=== PATIENT | male | born 1970 | race Caucasian/White ===

== ENCOUNTER 2016-11-19 08:16 | Emergency (ER) | payer MEDICARE, MEDICAID ==
[2016-11-19] MEDS ORDERED: IPRATROPIUM/ALBUTEROL 0.5-2.5 MG/3 ML AMPUL NEB ONE ×3 (09:26→09:27)
[2016-11-19] MEDS ORDERED: KETOROLAC TROMETHAMINE 60 MG/2 ML SDV IM ONE (09:26)
[2016-11-19] MEDS ORDERED: PREDNISONE 20 MG TABLET PO ONE (09:26)
--- NOTE | 2016-11-19 09:35 | ER Document Report ---
ED General - General Chief Complaint: Cough Stated Complaint: COUGH,BODY PAIN Mode of Arrival: Ambulatory Information source: Patient Notes: 46-year-old male smoker presents with complaints of a productive cough over the past few days. Patient denies any nausea vomiting admits to fevers and chills. Patient admits to body aches notes sputum is green thick TRAVEL OUTSIDE OF THE [place] IN LAST 30 DAYS: No - HPI Onset: Last week Onset/Duration: Persistent Quality of pain: Achy Severity: Mild Pain Level: 1 Associated symptoms: Body/muscle aches, Productive cough, Fever Exacerbated by: Denies Relieved by: Denies Similar symptoms previously: No Recently seen / treated by doctor: No - Related Data Allergies/Adverse Reactions: Penicillins Allergy (Verified 11/19/16 08:26) Past Medical History - Social History Smoking Status: Current Every Day Smoker Cigarette use (# per day): Yes - 1 ppk Chew tobacco use (# tins/day): Yes Smoking Education Provided: Yes - Patient counselled regarding cessation for 4 minutes Frequency of alcohol use: None Drug Abuse: None Family History: Reviewed & Not Pertinent Patient has suicidal ideation: No Patient has homicidal ideation: No - Past Medical History Cardiac Medical History: Reports: Hx Hypercholesterolemia, Hx Hypertension Endocrine Medical History: Reports: Hx Diabetes Mellitus Type 2, Hx Hypothyroidism Renal/ Medical History: Denies: Hx Peritoneal Dialysis Musculoskeltal Medical History: Reports Hx Musculoskeletal Deformity, Reports Hx Musculoskeletal Trauma Skin Medical History: Reports Hx MRSA Traumatic Medical History: Reports: Hx Fractures - Immunizations Immunizations up to date: Yes Hx Diphtheria, Pertussis, Tetanus Vaccination: Yes Review of Systems - Review of Systems Notes: REVIEW OF SYSTEMS: CONSTITUTIONAL : Admits fevers and chills EENT: Denies eye, ear, throat, or mouth pain or symptoms. Denies nasal or sinus congestion or discharge. Denies throat, tongue, or mouth swelling or difficulty swallowing. CARDIOVASCULAR: Denies chest pain. Denies palpitations or racing or irregular heart beat. Denies ankle edema. RESPIRATORY: admits to productive cough GASTROINTESTINAL: Denies abdominal pain or distention. Denies nausea, vomiting , or diarrhea. Denies blood in vomitus, stools, or per rectum. Denies black, tarry stools. Denies constipation. GENITOURINARY: Denies difficulty urinating, painful urination, burning, frequency, blood in urine, or discharge. MUSCULOSKELETAL: Denies back or neck pain or stiffness. Denies joint pain or swelling. SKIN: Denies rash, lesions or sores. HEMATOLOGIC : Denies easy bruising or bleeding. LYMPHATIC: Denies swollen, enlarged glands. NEUROLOGICAL: Denies confusion or altered mental status. Denies passing out or loss of consciousness. Denies dizziness or lightheadedness. Denies headache. Denies weakness or paralysis or loss of use of either side. Denies problems with gait or speech. Denies sensory loss, numbness, or tingling. Denies seizures. PSYCHIATRIC: Denies anxiety or stress. Denies depression, suicidal ideation, or homicidal ideation. ALL OTHER SYSTEMS REVIEWED AND NEGATIVE. Dictation was performed using [employer] voice recognition software PHYSICAL EXAMINATION: GENERAL: Well-appearing, well-nourished and in no acute distress. HEAD: Atraumatic, normocephalic. EYES: Pupils equal round and reactive to light, extraocular movements intact, sclera anicteric, conjunctiva are normal. ENT: Nares patent, oropharynx clear without exudates. Moist mucous membranes. NECK: Normal range of motion, supple without lymphadenopathy LUNGS: Coarse wheezing all throughout no respiratory distress HEART: Regular rate and rhythm without murmurs ABDOMEN: Soft, nontender, nondistended abdomen. No guarding, no rebound. No masses appreciated. Musculoskeletal: Normal range of motion, no pitting or edema. No cyanosis. NEUROLOGICAL: Cranial nerves grossly intact. Normal speech, normal gait. Normal sensory, motor exams PSYCH: Normal mood, normal affect. SKIN: Warm, Dry, normal turgor, no rashes or lesions noted. Physical Exam - Vital signs Vitals: Temp Pulse Resp BP Pulse Ox 98.2 F 74 18 157/88 H 96 11/19/16 08:28 11/19/16 08:28 11/19/16 08:28 11/19/16 08:28 11/19/16 08:28 Course - Re-evaluation Re-evalutation: 11/19/16 09:51 Patient will be given multiple breathing treatments, chest x-ray noted no significant abnormality however he does have diffuse wheezing. Otherwise patient is stable for discharge After performing a Medical Screening Examination, I estimate there is LOW risk for ACUTE CORONARY SYNDROME, RESPIRATORY FAILURE, SEPSIS OR MENINGITIS, thus I consider the discharge disposition reasonable. The patient and I have discussed the diagnosis and risks, and we agree with discharging home with close follow- up. We also discussed returning to the Emergency Department immediately if new or worsening symptoms occur. We have discussed the symptoms which are most concerning (e.g., changing or worsening pain, trouble swallowing or breathing, neck stiffness, fever) that necessitate immediate return. - Vital Signs Vital signs: Temp Pulse Resp BP Pulse Ox 98.2 F 74 18 157/88 H 96 11/19/16 08:28 11/19/16 08:28 11/19/16 08:28 11/19/16 08:28 11/19/16 08:28 - Diagnostic Test Radiology reviewed: Image reviewed, Reports reviewed Discharge - Discharge Clinical Impression: Encounter for smoking cessation counseling, Bronchospasm URI (upper respiratory infection) Qualifiers: URI type: unspecified viral URI Qualified Code(s): J06.9 - Acute upper respiratory infection, unspecified; B97.89 - Other viral agents as the cause of diseases classified elsewhere Condition: Stable Disposition: HOME, SELF-CARE Instructions: Upper Respiratory Infection, or Child ([facility]) Prescriptions: Doxycycline Hyclate 100 mg PO BID #14 capsule Prednisone [Deltasone 20 mg Tablet] 3 tab PO DAILY 5 Days Forms: Smoking Cessation Education Referrals: GIL CUNNINGHAM, STOPE MINER-C [Primary Care Provider] - Follow up as needed
[2016-11-19] MEDS ORDERED: ALBUTEROL SULFATE HFA (90 MCG/PUFF) 8 GM MDI (1 MDI/ER DISP) IH PRN (09:55)
[2016-11-19 10:39] VITALS: BP 151/88
== END 2016-11-19 10:32 | disposition home or self-care (01) ==
LOC: ER 08:16
DX: J06.9 Acute upper respiratory infection, unspecified (principal); B97.89 Other viral agents as the cause of diseases classified elsewhere; R05 Cough; M79.1 Myalgia; R50.9 Fever, unspecified; R06.2 Wheezing; I10 Essential (primary) hypertension; E11.9 Type 2 diabetes mellitus without complications; F17.210 Nicotine dependence, cigarettes, uncomplicated; Z71.6 Tobacco abuse counseling; Z86.14 Personal history of Methicillin resistant Staphylococcus aureus infection; Z88.0 Allergy status to penicillin
CPT/HCPCS: 94640 ×2; 99283; 96372; 71020; J1885; A9270 ×2; J3490; J7512; J7620

== ENCOUNTER 2017-02-18 17:20 | Emergency (ER) | payer MEDICARE, MEDICAID ==
[2017-02-18] MEDS ORDERED: HYDROMORPHONE HCL INJ/PF 2 MG/ML AMPULE IM ONE (19:01)
--- NOTE | 2017-02-18 19:03 | ER Document Report ---
HPI - HPI Patient complains to provider of: right hip pain Onset: Yesterday Onset/Duration: Gradual Quality of pain: Achy Pain Level: 5 Context: Patient states that he was getting out of bed, slipped and fell landing on his right hip 2 days ago. Patient states that he gradually developed hip pain yesterday that has progressively worsened. Patient does have chronic low back pain but states that his pain is not in his low back but more the right hip. Patient takes Percocet 10/325 and OxyContin 20 twice a day for his chronic back pain. Patient states that he last took his dose of medication early this morning. Patient denies any fever or IV drug use. Patient denies any urinary retention or incontinence. Patient states that he has been able to walk after the fall initially although does become more painful to do so at home. Patient states that occasionally he has had right hip pain in the past. Associated Symptoms: Other - Right hip pain Exacerbated by: Standing, Movement, Walking Relieved by: Denies Similar symptoms previously: Yes Recently seen / treated by doctor: No - ROS ROS below otherwise negative: Yes Systems Reviewed and Negative: Yes All other systems reviewed and negative - CONSTITUTIONAL Constitutional: DENIES: Fever, Chills - NEURO Neurology: DENIES: Weakness - GASTROINTESTINAL Gastrointestinal: DENIES: Nausea - MUSCULOSKELETAL Musculoskeletal: REPORTS: Extremity pain - Right hip - DERM Skin Color: Normal Skin Problems: None Past Medical History - General Information source: Patient - Social History Smoking Status: Current Every Day Smoker Frequency of alcohol use: None Drug Abuse: None Occupation: none Lives with: Family Family History: Reviewed & Not Pertinent Patient has suicidal ideation: No Patient has homicidal ideation: No - Past Medical History Cardiac Medical History: Reports: Hx Hypercholesterolemia, Hx Hypertension Endocrine Medical History: Reports: Hx Diabetes Mellitus Type 2, Hx Hypothyroidism Renal/ Medical History: Denies: Hx Peritoneal Dialysis Musculoskeltal Medical History: Reports Hx Musculoskeletal Deformity, Reports Hx Musculoskeletal Trauma, Reports Other - Chronic back pain Skin Medical History: Reports Hx MRSA Traumatic Medical History: Reports: Hx Fractures Surgical Hx: Negative - Immunizations Immunizations up to date: Yes Hx Diphtheria, Pertussis, Tetanus Vaccination: Yes Vertical Provider Document - CONSTITUTIONAL Agree With Documented VS: Yes Exam Limitations: No Limitations General Appearance: WD/WN, No Apparent Distress - INFECTION CONTROL TRAVEL OUTSIDE OF THE [place] IN LAST 30 DAYS: No - HEENT HEENT: Atraumatic, Normocephalic - NECK Neck: Normal Inspection, Supple - RESPIRATORY Respiratory: Breath Sounds Normal, No Respiratory Distress O2 Sat by Pulse Oximetry: 99 - CARDIOVASCULAR Cardiovascular: Regular Rate, Regular Rhythm Pulses: Normal: Posterior tibial - BACK Back: Normal Inspection. negative: CVA Tenderness-Right, CVA Tenderness-Left - MUSCULOSKELETAL/EXTREMETIES Musculoskeletal/Extremeties: MAEW, Tender Notes: Right hip tenderness to posterior, lateral and anterior aspect. Patient able to stand unassisted. No deformity. No ecchymosis. Tenderness increases with flexion or abduction - NEURO Level of Consciousness: Awake, Alert, Appropriate Motor/Sensory: No Motor Deficit, No Sensory Deficit - DERM Integumentary: Warm, Dry, Rash - Annular rash to right posterior hip area Course - Re-evaluation Re-evalutation: 02/18/17 19:55 When advising patient of x-ray report results. Patient then states that he feels that he needs an Salty wrap to his right wrist as he bent his right wrist back 7 months ago and has continued to have right wrist pain to that area since then. Patient without any obvious deformity or swelling to wrist. - Vital Signs Vital signs: Temp Pulse Resp BP Pulse Ox 98.2 F 71 16 168/93 H 99 02/18/17 17:41 02/18/17 17:41 02/18/17 17:41 02/18/17 17:41 02/18/17 17:41 - Diagnostic Test Radiology reviewed: Image reviewed, Reports reviewed Procedures - Immobilization Right Wrist Pre-Proc Neuro Vasc Exam: Normal Immobilizer type: Salty wrap Performed by: PCT Post-Proc Neuro Vasc Exam: Normal Alignment checked and good: Yes Discharge - Discharge Clinical Impression: Chronic pain of right wrist, Right hip pain, History of hypertension Condition: Stable Disposition: HOME, SELF-CARE Instructions: Chronic Pain Control ([facility]), Pain Medication Injection ([facility]), Salty Wrap ([facility]), Sprain ([facility]) Additional Instructions: Return immediately for any new or worsening symptoms Followup with your primary care provider, call tomorrow to make a followup appointment Follow up with orthopedic Dr. for any continued pain or problems Take your pain medication that you have at home as prescribed. Prescriptions: Walker [Folding Walker] 1 each MC ASDIR PRN #1 each PRN Reason: Referrals: [facility] [Provider Group] - Follow up tomorrow
[2017-02-18 21:28] VITALS: BP 158/92
== END 2017-02-18 20:45 | disposition home or self-care (01) ==
LOC: ER 17:20
DX: M25.551 Pain in right hip (principal); W06.XXXA Fall from bed, initial encounter; Y93.89 Activity, other specified; M54.5 Low back pain; M25.531 Pain in right wrist; G89.29 Other chronic pain; Z79.891 Long term (current) use of opiate analgesic; R21 Rash and other nonspecific skin eruption; I10 Essential (primary) hypertension; E11.9 Type 2 diabetes mellitus without complications; Z86.14 Personal history of Methicillin resistant Staphylococcus aureus infection; F17.200 Nicotine dependence, unspecified, uncomplicated
CPT/HCPCS: 99283; 96372; 73502; J1170

== ENCOUNTER 2017-04-03 21:26 | Emergency (ER) | payer MEDICARE, MEDICAID ==
[2017-04-03] MEDS ORDERED: NORMAL SALINE 1000 ML 1,000 ML IV ONE (21:31)
[2017-04-03 21:48] LABS: ABSOLUTE EOSINOPHILS # (AUTO) 0.2 10^3/uL (0.0-0.6); ABSOLUTE LYMPHOCYTES (AUTO) 1.7 10^3/uL (0.5-4.7); ABSOLUTE MONOCYTES (AUTO) 0.7 10^3/uL (0.1-1.4); ABSOLUTE NEUT (AUTO) 12.1 10^3/uL (1.7-8.2); BASOPHILS % (AUTO) 0.2 % (0-2); EOSINOPHILS % (AUTO) 1.2 % (0-6); HEMATOCRIT 39.6 % (37.9-51.0); HEMOGLOBIN 13.1 g/dL (13.5-17.0); HGB HCT DIFFERENCE -0.3; LYMPHOCYTES % (AUTO) 11.4 % (13-45); MEAN CORPUSCULAR HEMOGLOBIN 30.2 pg (27.0-33.4); MEAN CORPUSCULAR HGB CONC 33.1 g/dL (32.0-36.0); MEAN CORPUSCULAR VOLUME 91 fl (80-97); MONOCYTES % (AUTO) 4.5 % (3-13); RED BLOOD COUNT 4.34 10^6/uL (4.35-5.55); RED CELL DISTRIBUTION WIDTH 12.6 % (11.5-14.0); SEGMENTED NEUTROPHILS % (AUTO) 82.7 % (42-78); WHITE BLOOD COUNT 14.6 10^3/uL (4.0-10.5)
[2017-04-03 22:00] LABS: ALANINE AMINOTRANSFERASE 26 U/L (21-72); ALKALINE PHOSPHATASE 50 U/L (38-126); ANION GAP 12 (5-19); ASPARTATE AMINO TRANSFERASE 10 U/L (17-59); BILIRUBIN,DIRECT 0.3 mg/dL (0.0-0.4); BILIRUBIN,TOTAL 0.4 mg/dL (0.2-1.3); BLOOD UREA NITROGEN 10 mg/dL (7-20); CALCIUM 7.9 mg/dL (8.4-10.2); CARBON DIOXIDE 22 mmol/L (22-30); CHLORIDE 108 mmol/L (98-107); CREATININE RESULT 1.02 mg/dL (0.52-1.25); GLUCOSE 145 mg/dL (75-110); LIPASE 46.4 U/L (23-300); POTASSIUM 3.7 mmol/L (3.6-5.0); SODIUM 142.4 mmol/L (137-145); TOTAL PROTEIN 5.4 g/dL (6.3-8.2)
[2017-04-03] MEDS ORDERED: ONDANSETRON HCL INJ/PF 4 MG/2 ML SDV IV ONE (22:30)
--- NOTE | 2017-04-03 22:31 | RADIOLOGY REPORT (SQ) ---
EXAM DESCRIPTION: CT ABD/PELVIS WITH IV ONLY COMPLETED DATE/TIME: 04/03/2017 10:02 pm REASON FOR STUDY: abd pain hypotension COMPARISON: None. TECHNIQUE: CT scan of the abdomen and pelvis performed using helical scanning technique with dynamic intravenous contrast injection. No oral contrast. Images reviewed with lung, soft tissue, and bone windows. Reconstructed coronal and sagittal MPR images reviewed. Delayed images for evaluation of the urinary system also acquired. All images stored on PACS. All CT scanners at this facility use dose modulation, iterative reconstruction, and/or weight based d osing when appropriate to reduce radiation dose to as low as reasonably achievable (ALARA). [facility]: Dose Right [facility]: CareDose [facility]: Dose Right [facility]: Teradose 4D [facility]: [employer] CONTRAST TYPE AND DOSE: 100mL Isovue 370- low osmolar. RENAL FUNCTION: None required. The patient is less than 50 years old. RADIATION DOSE: 40.30mGy. LIMITATIONS: Patient positioning results in beam hardening artifact, limiting visualization of the r ight upper quadrant and right abdominal wall. FINDINGS: LOWER CHEST: No significant findings. No nodules or infiltrates. LIVER: Normal size. Hepatic steatosis. No masses or dilated ducts. SPLEEN: Normal size. No focal lesions. PANCREAS: No masses. No significant calcifications. No adjacent inflammation or peripancreatic fluid collections. Pancreatic duct not dilated. GALLBLADDER: No identified stones by CT criteria. No inflammatory changes to suggest cholecystitis. ADRENAL GLANDS: No significant masses or asymmetry. RIGHT KIDNEY AND URETER: No solid masses. No significant calcifications. No hydronephrosis or hyd roureter. LEFT KIDNEY AND URETER: No solid masses. No significant calcifications. No hydronephrosis or hydr oureter. AORTA AND VESSELS: No aneurysm. No dissection. Renal arteries, SMA, celiac without stenosis. RETROPERITONEUM: No retroperitoneal adenopathy, hemorrhage or masses. BOWEL AND PERITONEAL CAVITY: No masses or inflammatory changes. No free fluid or peritoneal masses. APPENDIX: Normal. PELVIS: No mass or free fluid. Normal bladder. ABDOMINAL WALL: No masses. No hernias. BONES: No significant or acute findings. Degenerative changes of the hips and spine. OTHER: No other significant finding. IMPRESSION: NO SIGNIFICANT OR ACUTE FINDING IN THE ABDOMEN OR PELVIS ON CT SCAN WITH IV CONTRAST. TECHNICAL DOCUMENTATION: JOB ID: [id number] Quality ID # [id number]: Final reports with documentation of one or more dose reduction techniques (e.g., Au tomated exposure control, adjustment of the mA and/or kV according to patient size, use of iterative reconstruction technique) 2010 [employer]- All Rights Reserved
--- NOTE | 2017-04-03 23:19 | ER Document Report ---
ED General - General Chief Complaint: Abdominal Pain Stated Complaint: ABDOMINAL PAIN Time Seen by Provider: 04/03/17 21:29 Mode of Arrival: Medic Information source: Patient, Emergency Med Personnel Notes: 46 yr old male presents by ems with complaints of sudden umbilcal abd pain with hypotension. symtpom was sudden, associated with nausea and vomiting. pt found with a bp of 70/40. Patient admits to have a history of gastric reflux. Was given IV fluids and immediately became more responsive TRAVEL OUTSIDE OF THE [place] IN LAST 30 DAYS: No - HPI Onset: Just prior to arrival Onset/Duration: Sudden Quality of pain: Sharp Severity: Mild Pain Level: 1 Associated symptoms: Nausea, Vomiting, Weakness Exacerbated by: Denies Relieved by: Denies Similar symptoms previously: No Recently seen / treated by doctor: No - Related Data Allergies/Adverse Reactions: Penicillins Allergy (Verified 04/03/17 22:12) Past Medical History - Social History Smoking Status: Current Some Day Smoker Cigarette use (# per day): Yes Chew tobacco use (# tins/day): No Smoking Education Provided: No Frequency of alcohol use: None Drug Abuse: None Family History: Reviewed & Not Pertinent - Past Medical History Cardiac Medical History: Reports: Hx Hypercholesterolemia, Hx Hypertension Endocrine Medical History: Reports: Hx Diabetes Mellitus Type 2, Hx Hypothyroidism Renal/ Medical History: Denies: Hx Peritoneal Dialysis Musculoskeltal Medical History: Reports Hx Musculoskeletal Deformity, Reports Hx Musculoskeletal Trauma Skin Medical History: Reports Hx MRSA Traumatic Medical History: Reports: Hx Fractures Past Surgical History: Reports: Hx Thyroid Surgery - Immunizations Immunizations up to date: Yes Hx Diphtheria, Pertussis, Tetanus Vaccination: Yes Review of Systems - Review of Systems Notes: REVIEW OF SYSTEMS: CONSTITUTIONAL : Denies fever, chills, or sweats. Denies recent illness. EENT: Denies eye, ear, throat, or mouth pain or symptoms. Denies nasal or sinus congestion or discharge. Denies throat, tongue, or mouth swelling or difficulty swallowing. CARDIOVASCULAR: Denies chest pain. Denies palpitations or racing or irregular heart beat. Denies ankle edema. RESPIRATORY: Denies cough, cold, or chest congestion. Denies shortness of breath, difficulty breathing, or wheezing. GASTROINTESTINAL: Admits to abdominal pain nausea vomiting GENITOURINARY: Denies difficulty urinating, painful urination, burning, frequency, blood in urine, or discharge. MUSCULOSKELETAL: Denies back or neck pain or stiffness. Denies joint pain or swelling. SKIN: Denies rash, lesions or sores. HEMATOLOGIC : Denies easy bruising or bleeding. LYMPHATIC: Denies swollen, enlarged glands. NEUROLOGICAL: Admits to weakness PSYCHIATRIC: Denies anxiety or stress. Denies depression, suicidal ideation, or homicidal ideation. ALL OTHER SYSTEMS REVIEWED AND NEGATIVE. Dictation was performed using [employer] voice recognition software PHYSICAL EXAMINATION: GENERAL: Well-appearing, well-nourished and in no acute distress. HEAD: Atraumatic, normocephalic. EYES: Pupils equal round and reactive to light, extraocular movements intact, sclera anicteric, conjunctiva are normal. ENT: Nares patent, oropharynx clear without exudates. Moist mucous membranes. NECK: Normal range of motion, supple without lymphadenopathy LUNGS: Breath sounds clear to auscultation bilaterally and equal. No wheezes rales or rhonchi. HEART: Regular rate and rhythm without murmurs ABDOMEN: Soft, nontender, nondistended abdomen. No guarding, no rebound. No masses appreciated. Musculoskeletal: Normal range of motion, no pitting or edema. No cyanosis. NEUROLOGICAL: Cranial nerves grossly intact. Normal speech, normal gait. Normal sensory, motor exams PSYCH: Normal mood, normal affect. SKIN: Warm, Dry, normal turgor, no rashes or lesions noted. Physical Exam - Vital signs Vitals: Temp BP 97.6 F 111/72 04/03/17 21:26 04/03/17 21:26 Course - Re-evaluation Re-evalutation: 04/03/17 23:18 Dr Radha sneed patient , notes that he is nontoxic appearing, has no abd pain, requests ng tube placement but expects discharge pt himself feels he has gerd and pain was probably secondary to ulcer with no active vomiting or bleeding 04/03/17 23:54 Physical examination on reevaluation notes a more alert male who is in no distress sitting up, NG tube was placed gastric occult is pending 04/04/17 00:01 Gastroccult was negative, given the imaging is negative lab work looks normal except for mild white count I believe the patient may have had an episode of syncope after vomiting with pain. Given that he is asymptomatic now feels much better I will discharge him home. I do have very strict return precautions for this patient since he did have the hypotension initially Patient and agreed to this plan I have instructed that they return immediately if there is any other concerns After performing a Medical Screening Examination, I estimate there is LOW risk for ACUTE APPENDICITIS, BOWEL OBSTRUCTION, ACUTE CHOLECYSTITIS, PERFORATED DIVERTICULITIS, INCARCERATED HERNIA, PANCREATITIS, or PERFORATED ULCER, thus I consider the discharge disposition reasonable. Also, there is no evidence or peritonitis, sepsis, or toxicity. I have reevaluated this patient multiple times and no significant life threatening changes are noted. The patient and I have discussed the diagnosis and risks, and we agree with discharging home with close follow-up with the understanding that symptoms and presentations can change. We also discussed returning to the Emergency Department immediately if new or worsening symptoms occur. We have discussed the symptoms which are most concerning (e.g., bloody stool, fever, changing or worsening pain, intractable vomiting - standard verbal up date) that necessitate immediate return. - Vital Signs Vital signs: Temp Pulse Resp BP Pulse Ox 97.6 F 17 117/75 97 04/03/17 21:26 04/03/17 22:16 04/03/17 22:16 04/03/17 22:16 - Laboratory Result Diagrams: 04/03/17 21:30 04/03/17 21:30 Laboratory results interpreted by me: 04/03/17 04/03/17 21:30 21:30 WBC 14.6 H RBC 4.34 L Hgb 13.1 L Seg Neutrophils % 82.7 H Lymphocytes % 11.4 L Absolute Neutrophils 12.1 H Chloride 108 H Glucose 145 H Calcium 7.9 L AST 10 L Total Protein 5.4 L Albumin 3.0 L - Diagnostic Test Radiology reviewed: Image reviewed, Reports reviewed - No acute abnormality Discharge - Discharge Clinical Impression: Abdominal pain Qualifiers: Abdominal location: periumbilical Qualified Code(s): R10.33 - Periumbilical pain Nausea & vomiting Qualifiers: Vomiting type: unspecified Vomiting Intractability: non-intractable Qualified Code(s): R11.2 - Nausea with vomiting, unspecified Hypotension Qualifiers: Hypotension type: unspecified hypotension type Qualified Code(s): I95.9 - Hypotension, unspecified Condition: Stable Disposition: HOME, SELF-CARE Instructions: Abdominal Pain ([facility]) Additional Instructions: Please return immediately if there are any other concerns, at this time I do not see any life-threatening issues however this may change at any time. Return immediately at anytime Referrals: YUMIKO QUICK MD [ACTIVE STAFF] - Follow up tomorrow
[2017-04-04 00:19] VITALS: BP 118/78
== END 2017-04-04 00:20 | disposition home or self-care (01) ==
LOC: ER 21:26
DX: R10.33 Periumbilical pain (principal); I95.9 Hypotension, unspecified; R11.2 Nausea with vomiting, unspecified; F17.210 Nicotine dependence, cigarettes, uncomplicated
CPT/HCPCS: 99284; 36415; 83690; 85025; 82271; 80053; 74177; J2405

== ENCOUNTER 2017-06-12 19:02 | Emergency (ER) | payer MEDICARE, MEDICAID ==
--- NOTE | 2017-06-12 19:48 | ER Document Report ---
ED Medical Screen (RME) - General Chief Complaint: Abscess Stated Complaint: POSSIBLE BUG BITE Time Seen by Provider: 06/12/17 19:45 Mode of Arrival: Ambulatory Information source: Patient TRAVEL OUTSIDE OF THE [place] IN LAST 30 DAYS: No - HPI Patient complains to provider of: bug bite Onset: This morning - pt states he was bitten by a bug on his back 2 days ago and now has become more swollen, tender, and red - Related Data Allergies/Adverse Reactions: Penicillins Allergy (Verified 04/03/17 22:12) Past Medical History - Past Medical History Cardiac Medical History: Reports: Hx Hypercholesterolemia, Hx Hypertension Endocrine Medical History: Reports: Hx Diabetes Mellitus Type 2, Hx Hypothyroidism Renal/ Medical History: Denies: Hx Peritoneal Dialysis Musculoskeltal Medical History: Reports Hx Musculoskeletal Deformity, Reports Hx Musculoskeletal Trauma Skin Medical History: Reports Hx MRSA Traumatic Medical History: Reports: Hx Fractures Past Surgical History: Reports: Hx Thyroid Surgery - Immunizations Immunizations up to date: Yes Hx Diphtheria, Pertussis, Tetanus Vaccination: Yes Physical Exam - Vital signs Vitals: Temp Pulse Resp BP Pulse Ox 98.7 F 84 20 145/83 H 96 06/12/17 19:29 06/12/17 19:29 06/12/17 19:29 06/12/17 19:29 06/12/17 19:29 Course - Vital Signs Vital signs: Temp Pulse Resp BP Pulse Ox 98.7 F 84 20 145/83 H 96 06/12/17 19:29 06/12/17 19:29 06/12/17 19:29 06/12/17 19:29 06/12/17 19:29
[2017-06-12] MEDS ORDERED: SULFAMETHOXAZOLE/TRIMETHOPRIM 800-160 MG TABLET PO ONE (20:30)
--- NOTE | 2017-06-12 20:30 | ER Document Report ---
ED Skin Rash/Insect Bite/Abscs - General Chief Complaint: Abscess Stated Complaint: POSSIBLE BUG BITE Time Seen by Provider: 06/12/17 19:45 Mode of Arrival: Ambulatory TRAVEL OUTSIDE OF THE [place] IN LAST 30 DAYS: No - HPI Patient complains to provider of: Tender/swollen area Onset: Other - 3 days Onset/Duration: Gradual Quality of pain: Achy, Pressure, Throbbing Severity: Moderate Skin Character: Abscess Skin Temperature: Hot Quality of rash: Painful Similar symptoms previously: Yes - h/o abscess in similar location - Related Data Allergies/Adverse Reactions: Penicillins Allergy (Verified 06/12/17 19:48) Past Medical History - General Information source: Patient - Social History Smoking Status: Current Every Day Smoker Family History: Reviewed & Not Pertinent Patient has suicidal ideation: No Patient has homicidal ideation: No - Past Medical History Cardiac Medical History: Reports: Hx Hypercholesterolemia, Hx Hypertension Endocrine Medical History: Reports: Hx Diabetes Mellitus Type 2, Hx Hypothyroidism Renal/ Medical History: Denies: Hx Peritoneal Dialysis Musculoskeltal Medical History: Reports Hx Musculoskeletal Deformity, Reports Hx Musculoskeletal Trauma Skin Medical History: Reports Hx MRSA Traumatic Medical History: Reports: Hx Fractures Past Surgical History: Reports: Hx Thyroid Surgery - Immunizations Immunizations up to date: Yes Hx Diphtheria, Pertussis, Tetanus Vaccination: Yes Review of Systems - Review of Systems Constitutional: No symptoms reported Skin: See HPI -: Yes All other systems reviewed and negative Physical Exam - Vital signs Vitals: Temp Pulse Resp BP Pulse Ox 98.7 F 84 20 145/83 H 96 06/12/17 19:29 06/12/17 19:29 06/12/17 19:29 06/12/17 19:29 06/12/17 19:29 - General General appearance: Appears well, Alert In distress: None - Back Back: Normal, Nontender - Neurological Neuro grossly intact: Yes Cognition: Normal Orientation: AAOx4 [place] Coma Scale Eye Opening: Spontaneous Kevin Coma Scale Verbal: Oriented Kevin Coma Scale Motor: Obeys Commands [place] Coma Scale Total: 15 - Skin Skin Temperature: Warm Skin Moisture: Dry Skin Color: Normal Skin Turgor: Elastic Skin irregularity: other - cellulitis Location of irregularity: Back - right flank Irregularity with: Swelling, Tenderness, Warmth, Induration - no palpable fluctuance, no concern for abscess, Well defined border Course - Re-evaluation Re-evalutation: 06/12/17 21:16 Patient is a 46-year-old male who is hemodynamic stable, no acute distress and afebrile. Presents with area of cellulitis. Borders marked. Ultrasound performed at the bedside with no appreciation of subcutaneous fluid or pocket. No evidence of purulent material during needle aspiration. Stable for discharge home and to follow-up in 3 days for wound check - Vital Signs Vital signs: Temp Pulse Resp BP Pulse Ox 98.3 F 78 16 135/82 H 97 06/12/17 20:46 06/12/17 20:46 06/12/17 20:46 06/12/17 20:46 06/12/17 20:46 Discharge - Discharge Clinical Impression: Cellulitis Qualifiers: Site of cellulitis: trunk Site of cellulitis of trunk: back Qualified Code(s): L03.312 - Cellulitis of back [any part except buttock] Condition: Good Disposition: HOME, SELF-CARE Instructions: Trimethoprim-Sulfa ([facility]), Cellulitis ([facility]), Warm Packs ([facility]) Additional Instructions: Please return for a wound check in 3-4 days either in the ER or with your primary care doctor Prescriptions: Ibuprofen [Motrin 800 mg Tablet] 800 mg PO Q8H PRN #30 tab PRN Reason: Sulfamethoxazole/Trimethoprim [Bactrim Ds Tablet] 1 each PO BID #20 tablet
[2017-06-12 20:48] VITALS: BP 135/82
== END 2017-06-12 20:57 | disposition home or self-care (01) ==
LOC: ER 19:02
DX: L03.312 Cellulitis of back [any part except buttock and flank] (principal); E78.00 Pure hypercholesterolemia, unspecified; I10 Essential (primary) hypertension; E11.9 Type 2 diabetes mellitus without complications; E03.9 Hypothyroidism, unspecified; Z86.14 Personal history of Methicillin resistant Staphylococcus aureus infection; Z88.0 Allergy status to penicillin
CPT/HCPCS: 99282; A9270

== ENCOUNTER 2017-06-16 01:25 | Emergency (ER) | payer MEDICARE, MEDICAID ==
[2017-06-16 01:32] VITALS: BP 151/83
--- NOTE | 2017-06-16 01:44 | ER Document Report ---
ED Skin Rash/Insect Bite/Abscs - General Chief Complaint: Abscess Stated Complaint: ABSCESS Time Seen by Provider: 06/16/17 01:33 TRAVEL OUTSIDE OF THE [place] IN LAST 30 DAYS: No - HPI Patient complains to provider of: Tender/swollen area Onset: Other - patient was seen 06/12/17, symptoms started on 06/09/2017 Onset/Duration: Gradual, Worse - has been draining fernandez fluid since yesterday Quality of pain: Achy, Throbbing Severity: Moderate Skin Character: Abscess Skin Temperature: Hot Quality of rash: Painful Identify cause: No Recently seen / treated by doctor: Yes - has been taking abx as instructed - Related Data Allergies/Adverse Reactions: Penicillins Allergy (Verified 06/12/17 19:48) Past Medical History - Social History Smoking Status: Current Every Day Smoker Family History: Reviewed & Not Pertinent Patient has suicidal ideation: No Patient has homicidal ideation: No - Past Medical History Cardiac Medical History: Reports: Hx Hypercholesterolemia, Hx Hypertension Endocrine Medical History: Reports: Hx Diabetes Mellitus Type 2, Hx Hypothyroidism Renal/ Medical History: Denies: Hx Peritoneal Dialysis Musculoskeltal Medical History: Reports Hx Musculoskeletal Deformity, Reports Hx Musculoskeletal Trauma Skin Medical History: Reports Hx MRSA Traumatic Medical History: Reports: Hx Fractures Past Surgical History: Reports: Hx Thyroid Surgery - Immunizations Immunizations up to date: Yes Hx Diphtheria, Pertussis, Tetanus Vaccination: Yes Review of Systems - Review of Systems Constitutional: No symptoms reported Skin: See HPI -: Yes All other systems reviewed and negative Physical Exam - Vital signs Vitals: Temp Pulse Resp BP Pulse Ox 98.3 F 83 16 151/83 H 98 06/16/17 01:29 06/16/17 01:29 06/16/17 01:29 06/16/17 01:29 06/16/17 01:29 Interpretation: Normal. No: Tachycardic, Febrile - General General appearance: Appears well, Alert In distress: None - Cardiovascular Rhythm: Regular Heart sounds: Normal auscultation, S1 appreciated, S2 appreciated Gallop: None auscultated - Neurological Neuro grossly intact: Yes Cognition: Normal Orientation: AAOx4 [place] Coma Scale Eye Opening: Spontaneous [place] Coma Scale Verbal: Oriented [place] Coma Scale Motor: Obeys Commands [place] Coma Scale Total: 15 - Skin Skin irregularity: Abscess - 2cm x3cm with superficial draiange no underlying fluctuance Location of irregularity: Back - right flank Course - Re-evaluation Re-evalutation: 06/16/17 03:20 Patient is a 38-year-old male who is hemodynamic stable, no acute distress and afebrile. Patient returns for wound check. Minimal purulent drainage noticed from the center of the erythema. Extended with a scalpel for approximately 5 cc of purulent material. Inflammation is similar to presentation 3 days ago with left erythema. Patient is afebrile and been taking antibiotics as prescribed. Patient can continue with outpatient management of his abscess and cellulitis. Patient agrees with plan. - Vital Signs Vital signs: Temp Pulse Resp BP Pulse Ox 98.3 F 83 16 151/83 H 98 06/16/17 01:29 06/16/17 01:29 06/16/17 01:29 06/16/17 01:29 06/16/17 01:29 Procedures - Incision and Drainage Back Type: Simple Anesthetic type: 1% Lidocaine mL's of anesthetic: 5 I&D procedure: Betadine prep applied Incision Method: Incision made by scalpel Amount/type of drainage: 5cc purulent material Discharge - Discharge Clinical Impression: Abscess of lower back Condition: Good Disposition: HOME, SELF-CARE Instructions: Abscess ([facility]), Post Incision and Drainage, Trimethoprim-Sulfa ( [facility]), Cephalexin ([facility]) Prescriptions: Cephalexin Monohydrate [Keflex 500 mg Capsule] 500 mg PO QID #20 capsule
[2017-06-16] MEDS ORDERED: OXYCODONE-ACETAMINOPHEN 5-325 MG TABLET PO ONE (01:57)
[2017-06-16] MEDS ORDERED: LIDOCAINE 1% INJ-PF (10 MG/ML) 30 ML SDV INJ ONE (01:57)
[2017-06-16] MEDS ORDERED: SULFAMETHOXAZOLE/TRIMETHOPRIM 800-160 MG TABLET PO ONE (03:06)
[2017-06-16] MEDS ORDERED: CEPHALEXIN 500 MG CAPSULE PO ONE (03:06)
[2017-06-16] MEDS ORDERED: HYDROCODONE/ACETAMINOPHEN 5-325 MG 6 TAB/DSPK PO PRN (03:06)
== END 2017-06-16 03:19 | disposition home or self-care (01) ==
LOC: ER 01:25
PROC: 0H96XZZ Drainage of Back Skin, External Approach (ICD-10-PCS; principal; 2017-06-16)
DX: L02.212 Cutaneous abscess of back [any part, except buttock and flank] (principal); F17.200 Nicotine dependence, unspecified, uncomplicated
CPT/HCPCS: 99283; 87070; 87205; 87075; 87077; 87186; 10060; A9270 ×4

== ENCOUNTER 2017-08-17 18:56 | Emergency (ER) | payer MEDICARE, MEDICAID ==
--- NOTE | 2017-08-17 19:28 | ER Document Report ---
ED Fall - General Chief Complaint: Fall Injury Stated Complaint: FALL/LEFT LEG PAIN Time Seen by Provider: 08/17/17 19:17 Mode of Arrival: Ambulatory Information source: Patient TRAVEL OUTSIDE OF THE [place] IN LAST 30 DAYS: No - HPI Occurred: Last week Where: Home Context: Tripped Associated symptoms: denies: Lost consciousness, Dazed/confused, Seizure, Difficulty breathing, Difficulty walking, Became dizzy/fainted, Blood in stool Location of injury/pain: Knee Quality of pain: Achy Severity: Moderate Notes: Patient arrives with complaints of left knee pain. States that he was untangling his dog that was wrapped around a tree when the cable wrapped around his leg causing him to fall and landed on his left knee. He has had pain in the left knee since this occurred. He denies any numbness, tingling, weakness. No redness or swelling. No rash. No blood thinners. No chest pain or shortness of breath. He denies any nausea, vomiting, diarrhea. He denies any other injuries, no other complaints. - Related data Allergies/Adverse Reactions: Penicillins Allergy (Verified 08/17/17 19:01) Past Medical History - Social History Smoking Status: Unknown if Ever Smoked Family History: Reviewed & Not Pertinent - Past Medical History Cardiac Medical History: Reports: Hx Hypercholesterolemia, Hx Hypertension Endocrine Medical History: Reports: Hx Diabetes Mellitus Type 2, Hx Hypothyroidism Renal/ Medical History: Denies: Hx Peritoneal Dialysis Musculoskeltal Medical History: Reports Hx Musculoskeletal Deformity, Reports Hx Musculoskeletal Trauma Skin Medical History: Reports Hx MRSA Traumatic Medical History: Reports: Hx Fractures Past Surgical History: Reports: Hx Thyroid Surgery - Immunizations Immunizations up to date: Yes Hx Diphtheria, Pertussis, Tetanus Vaccination: Yes Review of Systems - Review of Systems -: Yes All other systems reviewed and negative Physical Exam - Vital signs Vitals: Temp Pulse BP Pulse Ox 97.9 F 81 181/94 H 97 08/17/17 19:00 08/17/17 19:00 08/17/17 19:00 08/17/17 19:00 - Notes Notes: GENERAL: alert, cooperative, nontoxic, no distress. HEAD: normocephalic, atraumatic EYES: conjunctiva pink without discharge, no external redness or swelling. EARS: no external swelling, no external redness NOSE: atraumatic, no external swelling MOUTH/THROAT: mucous membranes moist and pink NECK: soft, supple, full range of motion, no meningismus. CHEST: no distress, lungs clear and equal throughout. No wheezing, rales, rhonchi. CARDIAC: regular rate and rhythm, no murmur, normal capillary refill, normal pulses. BACK: full range of motion, no CVA tenderness. EXTREMITIES: full range of motion of all extremities. No redness, no swelling. Tenderness palpation of the left knee. No ligament instability. Anterior posterior drawer normal. No signs of infection. Normal straight leg raise. Normal pulse and sensation distally. Compartments are soft. NEURO: alert and oriented 3, no focal deficits, full range of motion of all extremities. PYSCH: appropriate mood, affect. Patient is cooperative. SKIN: pink, warm, dry, no rash. Course - Re-evaluation Re-evalutation: 08/17/17 20:58 Patient is nontoxic appearing with stable vitals. The patient injured his left knee a few days ago when he tripped over his dog's leash. He now has left knee pain. There is no obvious ligament instability. There is no redness or signs of infection. Neurovascularly intact. Compartments are soft. X-ray showed no acute bony abnormality. Patient will be placed in an Salty wrap. Discharged home on Voltaren. Follow-up with Orth O or primary care doc if not better in 1 week, sooner for increased pain, fever, redness, any further concerns. The patient is noted to have elevated blood pressure during today's emergency department visit. The patient was informed of this finding. The patient was instructed that this may be related to pre-hypertension and requires further evaluation with a primary care provider. The patient has no hypertensive symptoms at this time. The patient's emergency department workup and current diagnosis were explained to the patient and or family. Follow-up instructions were provided. Medications if prescribed were discussed. Instructions for when to return to the emergency department including specific worrisome symptoms were discussed with the patient and/or family. - Vital Signs Vital signs: Temp Pulse Resp BP Pulse Ox 97.9 F 81 181/94 H 97 08/17/17 19:00 08/17/17 19:00 08/17/17 19:00 08/17/17 19:00 Procedures - Immobilization Left knee Pre-Proc Neuro Vasc Exam: Normal Immobilizer type: Salty wrap Performed by: PCT Post-Proc Neuro Vasc Exam: Normal Alignment checked and good: Yes Discharge - Discharge Clinical Impression: Left knee sprain Qualifiers: Encounter type: initial encounter Involved ligament of knee: unspecified ligament Qualified Code(s): S83.92XA - Sprain of unspecified site of left knee, initial encounter Condition: Stable Disposition: HOME, SELF-CARE Instructions: Sprained Knee ([facility]) Additional Instructions: Take medications as prescribed. Wear Salty wrap as needed. Rest, ice, elevate your knee. Follow-up if not better in 1 week, sooner for increased pain, fever , numbness, tingling, weakness, any further concerns. Your blood pressure was elevated during today's visit. Have this rechecked with your doctor. Prescriptions: Diclofenac Sodium [Voltaren 50 Mg Tablet.] 50 mg PO BID #20 tablet. Referrals: [facility] [Provider Group] - Follow up as needed AC C[facility] MD [ACTIVE STAFF] - Follow up as needed
--- NOTE | 2017-08-17 20:13 | RADIOLOGY REPORT (SQ) ---
EXAM DESCRIPTION: KNEE LEFT 3 VIEWS COMPLETED DATE/TIME: 08/17/2017 7:47 pm REASON FOR STUDY: PAIN COMPARISON: None. NUMBER OF VIEWS: Three views TECHNIQUE: AP, lateral, and tunnel radiographic images acquired of the left knee. LIMITATIONS: None. FINDINGS: MINERALIZATION: Normal. BONES: No acute fracture or dislocation. There is a small bony projection along the lateral aspect o f the medial tibial plateau most consistent with a small osteochondroma. JOINT: No effusion. SOFT TISSUES: No soft tissue swelling. No radio-opaque foreign body. OTHER: No other significant finding. IMPRESSION: No acute fracture dislocation. Findings consistent with a small osteochondroma at the l evel of the medial tibial plateau. Other findings as noted above TECHNICAL DOCUMENTATION: JOB ID: [id number] [employer]- All Rights Reserved
[2017-08-17] MEDS ORDERED: KETOROLAC TROMETHAMINE 60 MG/2 ML SDV IM ONE (20:19)
[2017-08-17 21:12] VITALS: BP 153/101
== END 2017-08-17 21:12 | disposition home or self-care (01) ==
LOC: ER 18:56
DX: S83.92XA Sprain of unspecified site of left knee, initial encounter (principal); M25.562 Pain in left knee; W01.0XXA Fall on same level from slipping, tripping and stumbling without subsequent striking against object, initial encounter; Y93.K9 Activity, other involving animal care; Y92.009 Unspecified place in unspecified non-institutional (private) residence as the place of occurrence of the external cause; I10 Essential (primary) hypertension; E11.9 Type 2 diabetes mellitus without complications; Z88.0 Allergy status to penicillin
CPT/HCPCS: 99283; 96372; 73562; J1885

== ENCOUNTER 2018-04-28 23:25 | Inpatient (IN) | payer MEDICARE, MEDICAID ==
--- NOTE | 2018-04-28 23:55 | ER Document Report ---
ED Medical Screen (RME) - General Chief Complaint: Chest Pain Stated Complaint: CHEST PAIN Time Seen by Provider: 04/28/18 23:52 Mode of Arrival: Medic Information source: Patient Notes: Patient states he was at home watching TV around 10 PM and developed midsternal chest pain. Patient states that he was given aspirin and nitroglycerin per EMS and that the pain is almost completely resolved at this time. Patient denies any shortness of breath. Patient does have chronic cough but attributes this to smoking. Patient does have nausea but no vomiting. Patient does take Brilinta. hx: DE, stent 1, hypertension, hyperlipidemia I have greeted and performed a rapid initial assessment of this patient. A comprehensive ED assessment and evaluation of the patient, analysis of test results and completion of the medical decision making process will be conducted by additional ED providers. TRAVEL OUTSIDE OF THE [place] IN LAST 30 DAYS: No - Related Data Allergies/Adverse Reactions: Penicillins Allergy (Verified 04/28/18 23:39) Past Medical History - Past Medical History Cardiac Medical History: Reports: Hx Hypercholesterolemia, Hx Hypertension Endocrine Medical History: Reports: Hx Diabetes Mellitus Type 2, Hx Hypothyroidism Renal/ Medical History: Denies: Hx Peritoneal Dialysis Musculoskeltal Medical History: Reports Hx Musculoskeletal Deformity, Reports Hx Musculoskeletal Trauma Skin Medical History: Reports Hx MRSA Traumatic Medical History: Reports: Hx Fractures Past Surgical History: Reports: Hx Thyroid Surgery - Immunizations Immunizations up to date: Yes Hx Diphtheria, Pertussis, Tetanus Vaccination: Yes Physical Exam - Vital signs Vitals: Temp Pulse Resp BP Pulse Ox 98.2 F 66 20 125/88 H 97 04/28/18 23:45 04/28/18 23:45 04/28/18 23:45 04/28/18 23:45 04/28/18 23:45 - Cardiovascular Rhythm: Regular Heart sounds: S1 appreciated, S2 appreciated Murmur: No Course - Vital Signs Vital signs: Temp Pulse Resp BP Pulse Ox 98.2 F 66 20 125/88 H 97 04/28/18 23:45 04/28/18 23:45 04/28/18 23:45 04/28/18 23:45 04/28/18 23:45
[2018-04-29 00:33] LABS: ABSOLUTE EOSINOPHILS # (AUTO) 0.3 10^3/uL (0.0-0.6); ABSOLUTE LYMPHOCYTES (AUTO) 2.2 10^3/uL (0.5-4.7); ABSOLUTE MONOCYTES (AUTO) 0.8 10^3/uL (0.1-1.4); ABSOLUTE NEUT (AUTO) 10.4 10^3/uL (1.7-8.2); BASOPHILS % (AUTO) 0.1 % (0-2); EOSINOPHILS % (AUTO) 2.3 % (0-6); HEMOGLOBIN 14.9 g/dL (13.5-17.0); MEAN CORPUSCULAR HEMOGLOBIN 31.2 pg (27.0-33.4); MEAN CORPUSCULAR VOLUME 92 fl (80-97); MONOCYTES % (AUTO) 5.6 % (3-13); PLATELET COUNT 343 10^3/uL (150-450); RED BLOOD COUNT 4.78 10^6/uL (4.35-5.55); RED CELL DISTRIBUTION WIDTH 13.9 % (11.5-14.0); TOTAL CELLS COUNTED % (AUTO) 100 %; WHITE BLOOD COUNT 13.7 10^3/uL (4.0-10.5)
[2018-04-29 00:39] LABS: INTERNATIONAL RATION (INR) 0.97; PROTHROMBIN TIME 13.4 SEC (11.4-15.4)
[2018-04-29 00:40] LABS: PARTIAL THROMBOPLASTIN TIME 30.1 SEC (23.5-35.8)
[2018-04-29 00:47] LABS: ALANINE AMINOTRANSFERASE 29 U/L (21-72); ALBUMIN 4.3 g/dL (3.5-5.0); ALKALINE PHOSPHATASE 60 U/L (38-126); ANION GAP 12 (5-19); ASPARTATE AMINO TRANSFERASE 14 U/L (17-59); BILIRUBIN,DIRECT 0.4 mg/dL (0.0-0.4); BILIRUBIN,TOTAL 0.6 mg/dL (0.2-1.3); BLOOD UREA NITROGEN 19 mg/dL (7-20); CALCIUM 10.1 mg/dL (8.4-10.2); CARBON DIOXIDE 29 mmol/L (22-30); CHLORIDE 100 mmol/L (98-107); CREATINE KINASE 21 U/L (55-170); GLUCOSE 250 mg/dL (75-110); LIPASE 382.6 U/L (23-300); POTASSIUM 4.9 mmol/L (3.6-5.0); TOTAL PROTEIN 7.3 g/dL (6.3-8.2)
[2018-04-29 00:58] LABS: CREATINE KINASE MB 0.37 ng/mL (<4.55); TROPONIN I < 0.012 ng/mL
--- NOTE | 2018-04-29 01:20 | ER Document Report ---
ED General - General Chief Complaint: Chest Pain Stated Complaint: CHEST PAIN Time Seen by Provider: 04/28/18 23:52 Mode of Arrival: Medic Notes: Patient is a 47-year-old male with a history of coronary disease and stenting who presents with complaint of chest pain. Last stent was placed in January 30 of this year at [facility]. Patient says tonight he woke up with severe chest pain shortness of breath and was diaphoretic. He took aspirin followed by 2 sublingual nitroglycerin. After second nitro his pain resolved. He currently is pain-free and has no further complaints at this time. TRAVEL OUTSIDE OF THE [place] IN LAST 30 DAYS: No - Related Data Allergies/Adverse Reactions: Penicillins Allergy (Verified 04/28/18 23:39) Past Medical History - General Information source: Patient - Social History Smoking Status: Unknown if Ever Smoked Frequency of alcohol use: None Drug Abuse: None Family History: Reviewed & Not Pertinent - Past Medical History Cardiac Medical History: Reports: Hx Hypercholesterolemia, Hx Hypertension Endocrine Medical History: Reports: Hx Diabetes Mellitus Type 2, Hx Hypothyroidism Renal/ Medical History: Denies: Hx Peritoneal Dialysis Musculoskeltal Medical History: Reports Hx Musculoskeletal Deformity, Reports Hx Musculoskeletal Trauma Skin Medical History: Reports Hx MRSA Traumatic Medical History: Reports: Hx Fractures Past Surgical History: Reports: Hx Thyroid Surgery - Immunizations Immunizations up to date: Yes Hx Diphtheria, Pertussis, Tetanus Vaccination: Yes Review of Systems - Review of Systems Notes: My Normal Review Basic REVIEW OF SYSTEMS: CONSTITUTIONAL : Denies fever, chills, or sweats. Denies recent illness. EENT: Denies eye, ear, throat, or mouth pain or symptoms. Denies nasal or sinus congestion. CARDIOVASCULAR: Had chest pain RESPIRATORY: Denies cough, cold, or chest congestion. Difficulty breathing during episode of chest pain. GASTROINTESTINAL: Denies abdominal pain. Denies nausea, vomiting, or diarrhea. MUSCULOSKELETAL: Denies neck or back pain or joint pain or swelling. SKIN: Denies rash or skin lesions. HEMATOLOGIC : Denies easy bruising or bleeding. NEUROLOGICAL: Denies altered mental status or loss of consciousness. Denies headache. Denies weakness or paralysis or loss of use of either side. Denies problems with gait or speech. Denies sensory or motor loss. ALL OTHER SYSTEMS REVIEWED AND NEGATIVE. Physical Exam - Vital signs Vitals: Temp Pulse Resp BP Pulse Ox 98.2 F 66 20 125/88 H 97 04/28/18 23:45 04/28/18 23:45 04/28/18 23:45 04/28/18 23:45 04/28/18 23:45 - Notes Notes: General Appearance: Well nourished, alert, cooperative, no acute distress, no obvious discomfort. Vitals: reviewed, See vital signs table. Head: no swelling or tenderness to the head Eyes: PERRL, EOMI, Conjuctiva clear Mouth: No decreasd moisture Neck: Supple, no neck tenderness, Lungs: No wheezing, No rales, No rhonci, No accessory muscle use, good air exchange bilaterally. Heart: Normal rate, Regular rythm, No murmur, no rub Abdomen: Normal BS, soft, No rigidity, No abdominal tenderness, No guarding, no rebound, no abdominal masses, no organomegaly Extremities: strength 5/5 in all extremities, good pulses in all extremities, no swelling or tenderness in the extremities, no edema. Skin: warm, dry, appropriate color, no rash Neuro: speech clear, oriented x 3, normal affect, responds appropriately to questions. Course - Re-evaluation Re-evalutation: 04/29/18 07:07 Patient is feeling much improved his chest pain is free. I do feel he needs admission for observation being that he had recent stenting and history of coronary disease and had chest pain that was relieved with nitroglycerin. I did speak with the hospitalist, Dr. Miller, agrees to admit the patient. Dictation of this chart was performed using voice recognition software; therefore, there may be some unintended grammatical errors. 04/29/18 07:08 - Vital Signs Vital signs: Temp Pulse Resp BP Pulse Ox 97.7 F 75 21 H 130/101 H 100 04/29/18 05:29 04/29/18 05:29 04/29/18 05:29 04/29/18 05:29 04/29/18 05:29 - Laboratory Result Diagrams: 04/29/18 00:12 04/29/18 00:12 Laboratory results interpreted by me: 04/29/18 04/29/18 00:12 00:12 WBC 13.7 H Absolute Neutrophils 10.4 H Glucose 250 H AST 14 L Creatine Kinase 21 L Lipase 382.6 H - EKG Interpretation by Me Additional EKG results interpreted by me: 04/29/18 01:20 EKG is reviewed and interpreted by me. EKG shows normal sinus rhythm with rate of [address] segment elevation or depression. No ischemic T-wave inversions. MS interval, QRS duration, QTc intervals are within normal range. No old EKG available for comparison. No acute changes comparison to old EKG from August 31, 2016. 04/29/18 01:21 04/29/18 01:22 Discharge - Discharge Clinical Impression: Chest pain Qualifiers: Chest pain type: unspecified Qualified Code(s): R07.9 - Chest pain, unspecified Condition: Stable Disposition: ADMITTED OBSERVATION Admitting Provider: Hospitalist Unit Admitted: Telemetry
--- NOTE | 2018-04-29 02:10 | RADIOLOGY REPORT (SQ) ---
EXAM DESCRIPTION: XR CHEST 1 VIEW COMPLETED DATE/TME: 04/29/2018 01:31 CLINICAL HISTORY: chest pain COMPARISON: 11/19/2016 FINDINGS: Single frontal view of the chest. The cardiomediastinal silhouette has normal size and contour. Left basilar airspace opacity. No pneumothorax or pleural effusion. Degenerative change of the spine. Leads overlie the chest. Upper abdominal soft tissues are unremarkable. IMPRESSION: 1. Left basilar airspace opacity concerning for pneumonia.
[2018-04-29] MEDS ORDERED: NITROGLYCERIN 0.4 MG/TAB 25 TAB/BOTTLE SL PRN ×2 (03:08→10:07)
[2018-04-29] MEDS ORDERED: GLUCAGON,HUMAN RECOMB 1 MG INJ IM PRN (03:10)
[2018-04-29] MEDS ORDERED: DEXTROSE 50%-WATER 25 GM/50 ML DISP.SYRIN IV PRN ×2 (03:10)
[2018-04-29] MEDS ORDERED: DEXTROSE 40% GEL 15 GM TUBE PO PRN ×2 (03:10)
[2018-04-29] MEDS ORDERED: SIMVASTATIN 40 MG TABLET PO ONE (04:00)
[2018-04-29] MEDS: GABAPENTIN 300 MG CAPSULE PO SCH ×3 (05:39→21:23)
[2018-04-29] MEDS ORDERED: LACTULOSE SYRUP 20 GM/30 ML UDCUP PO ONE (06:08)
--- NOTE | 2018-04-29 06:08 | PDOC H&P ---
History of Present Illness Admission Date/PCP: 04/29/18 02:09 CHERYLE DEAN Patient complains of: Chest pain History of Present Illness: ROSALBA COELLO is a 47 year old male with a past medical history of coronary artery disease status post stent placement January 2018 with follow-up stress test 1 month ago which was unremarkable according to the patient. He presents 1 hour after the onset of retrosternal chest pain which was 4-5 intensity sharp in nature which reminded him of his acute coronary in January 2018. In addition he had diaphoresis, nausea without vomiting and shortness of breath. Patient was prompted to take sublingual nitro resulting in significant improvement. He is otherwise unable to identify exacerbating factors. In the emergency room he has an unremarkable workup is referred to the hospitalist for observation. He is currently pain-free. He denies recent changes or missing medications. Past Medical History Cardiac Medical History: Reports: Coronary Artery Disease, Hyperlipidema, Hypertension Endocrine Medical History: Reports: Diabetes Mellitus Type 2, Hypothyroidism Past Surgical History Past Surgical History: Reports: Coronary Stent Social History Information Source: Patient, [facility] Records Lives with: Family Smoking Status: Current Every Day Smoker Frequency of Alcohol Use: None Hx Recreational Drug Use: No Drugs: None Hx Prescription Drug Abuse: No - Advance Directive Resuscitation Status: Full Code Family History Family History: CAD, COPD Parental Family History Reviewed: Yes Children Family History Reviewed: Yes Sibling(s) Family History Reviewed.: Yes Medication/Allergy Home Medications: Albuterol Sulfate [Ventolin HFA MDI 18 GM] 2 inh PO Q4HP PRN 08/27/16 Cyclobenzaprine HCl [Flexeril 10 mg Tablet] 10 mg PO BID 08/27/16 Gabapentin 300 mg PO Q8 08/27/16 Ibuprofen 800 mg PO DAILYP PRN 08/27/16 Levothyroxine Sodium [Synthroid 0.075 mg Tablet] 0.075 mg PO DAILY 08/27/16 Metformin HCl [Glucophage] 1,000 mg PO BIDBS 08/27/16 Oxycodone HCl [Oxycontin Sr 10 mg Tablet] 20 mg PO Q12 08/27/16 Oxycodone HCl/Acetaminophen [Percocet 10-325 mg Tablet] 1 tab PO Q12 08/27/16 Simvastatin [Zocor 20 mg Tablet] 20 mg PO QHS 10/27/16 Naproxen [Naprosyn 250 Nmg Tablet] 500 mg PO BIDP PRN #30 tablet 09/02/16 Doxycycline Hyclate 100 mg PO BID #14 capsule 11/19/16 Prednisone [Deltasone 20 mg Tablet] 3 tab PO DAILY 5 Days tablet 11/19/16 Walker [Folding Walker] 1 each MC ASDIR PRN #1 each 02/18/17 Ibuprofen [Motrin 800 mg Tablet] 800 mg PO Q8H PRN #30 tab 06/12/17 Sulfamethoxazole/Trimethoprim [Bactrim Ds Tablet] 1 each PO BID #20 tablet 06/12 Cephalexin Monohydrate [Keflex 500 mg Capsule] 500 mg PO QID #20 capsule Diclofenac Sodium [Voltaren 50 Mg Tablet.] 50 mg PO BID #20 tablet. Allergies/Adverse Reactions: Penicillins Allergy (Verified 04/28/18 23:39) Review of Systems Constitutional: ABSENT: chills, fever(s), headache(s), weight gain, weight loss Eyes: ABSENT: visual disturbances Ears: ABSENT: hearing changes Cardiovascular: ABSENT: chest pain, dyspnea on exertion, edema, orthropnea, palpitations Respiratory: ABSENT: cough, hemoptysis Gastrointestinal: ABSENT: abdominal pain, constipation, diarrhea, hematemesis, hematochezia, nausea, vomiting Genitourinary: ABSENT: dysuria, hematuria Musculoskeletal: ABSENT: joint swelling Integumentary: ABSENT: rash, wounds Neurological: ABSENT: abnormal gait, abnormal speech, confusion, dizziness, focal weakness, syncope Psychiatric: ABSENT: anxiety, depression, homidical ideation, suicidal ideation Endocrine: ABSENT: cold intolerance, heat intolerance, polydipsia, polyuria Hematologic/Lymphatic: ABSENT: easy bleeding, easy bruising Physical Exam Vital Signs: Temp Pulse Resp BP Pulse Ox 97.7 F 75 21 H 130/101 H 100 04/29/18 05:29 04/29/18 05:29 04/29/18 05:29 04/29/18 05:29 04/29/18 05:29 Intake & Output 04/27/18 04/28/18 04/29/18 11:59 11:59 11:59 Intake Total 3 Balance 3 Weight 109.9 kg General appearance: PRESENT: no acute distress, well-developed, well-nourished Head exam: PRESENT: atraumatic, normocephalic Eye exam: PRESENT: conjunctiva pink, EOMI, PERRLA. ABSENT: scleral icterus Ear exam: PRESENT: normal external ear exam Mouth exam: PRESENT: moist, tongue midline Neck exam: ABSENT: carotid bruit, JVD, lymphadenopathy, thyromegaly Respiratory exam: PRESENT: clear to auscultation apolinar. ABSENT: rales, rhonchi, wheezes Cardiovascular exam: PRESENT: RRR. ABSENT: diastolic murmur, rubs, systolic murmur Pulses: PRESENT: normal dorsalis pedis pul Vascular exam: PRESENT: normal capillary refill GI/Abdominal exam: PRESENT: normal bowel sounds, soft. ABSENT: distended, guarding, mass, organolmegaly, rebound, tenderness Rectal exam: PRESENT: deferred Extremities exam: PRESENT: full ROM. ABSENT: calf tenderness, clubbing, pedal edema Neurological exam: PRESENT: alert, awake, oriented to person, oriented to place , oriented to time, oriented to situation, CN II-XII grossly intact. ABSENT: motor sensory deficit Psychiatric exam: PRESENT: appropriate affect, normal mood. ABSENT: homicidal ideation, suicidal ideation Skin exam: PRESENT: dry, intact, warm. ABSENT: cyanosis, rash Results Impressions: Chest X-Ray 04/29/18 01:31 IMPRESSION: 1. Left basilar airspace opacity concerning for pneumonia. Assessment & Plan - Diagnosis (1) Chest pain Qualifiers: Chest pain type: unspecified Qualified Code(s): R07.9 - Chest pain, unspecified Is this a current diagnosis for this admission?: Yes Plan: Likely noncardiac despite his history given negative cardiac stress test only 1 month ago. Serial cardiac enzymes, symptomatic management follow-up with Dr. Lockwood. Scheduled appointment May 10. (2) Diabetes Is this a current diagnosis for this admission?: Yes Plan: Outpatient regiment with Humalog sliding scale
[2018-04-29 08:07] LABS: CREATINE KINASE MB 0.43 ng/mL (<4.55); TROPONIN I 0.019 ng/mL
--- NOTE | 2018-04-29 09:02 | RADIOLOGY REPORT (SQ) ---
EXAM DESCRIPTION: ABDOMEN 2 VIEWS COMPLETED DATE/TIME: 04/29/2018 8:07 am REASON FOR STUDY: abd pain COMPARISON: CT abdomen pelvis 04/03/2017 NUMBER OF VIEWS: Two views. TECHNIQUE: Supine and upright radiographic images of the abdomen acquired. LIMITATIONS: None. FINDINGS: FREE AIR: None. No abnormal gas collections. LUNG BASES: Mild bibasilar atelectasis BOWEL GAS PATTERN: Nonobstructive pattern. No dilated loops or air fluid levels. CALCIFICATIONS: No suspicious calcifications. SOFT TISSUES: No gross mass or suggestion of organomegaly. HARDWARE: None in the abdomen. BONES: Degenerative changes lower lumbar spine. OTHER: No other significant finding. IMPRESSION: NO RADIOGRAPHIC EVIDENCE FOR ACUTE ABDOMINAL DISEASE. TECHNICAL DOCUMENTATION: JOB ID: [id number] [employer]- All Rights Reserved Reading location - IP/workstation name: [email or web address]
[2018-04-29] MEDS: DOCUSATE SODIUM 100 MG CAPSULE PO SCH ×2 (10:04→17:39)
[2018-04-29] MEDS ORDERED: ISOSORBIDE MONONITRATE 30 MG TAB.ER.24H PO ONE (11:00)
[2018-04-29] MEDS ORDERED: ASPIRIN 81 MG TABLET, ENT COATED PO ONE (11:00)
[2018-04-29] MEDS: INSULIN LISPRO 100 UNIT/ML 3 ML VIAL SUBCUT PRN ×3 (12:05→22:01)
[2018-04-29] MEDS ORDERED: OXYCODONE HCL SR 10 MG TABLET PO ONE (13:00)
[2018-04-29 13:23] LABS: CREATINE KINASE MB 0.45 ng/mL (<4.55); TROPONIN I 0.038 ng/mL
[2018-04-29] MEDS: OXYCODONE-ACETAMINOPHEN 5-325 MG TABLET PO PRN ×2 (13:48→20:38)
[2018-04-29] MEDS: LIDOCAINE 2% VISCOUS SOLN 20 ML UDCUP PO PRN (17:40)
--- NOTE | 2018-04-29 18:08 | XCELERA REPORT ---
[address] [address] Transthoracic Echocardiogram Report Name: ROSALBA COELLO Age: 47 yrs Gender: Male : 1970 Patient Status: Inpatient Patient Location: [address] [place] [address] Study Date: 04/29/2018 03:18 PM Height: 73 in Weight: 242 lb BSA: 2.3 m2 Procedure: A complete two-dimensional transthoracic echocardiogram was performed (2D, M-mode, spectral and color flow Doppler). The study was technically adequate with some images being suboptimal in quality. Reason For Study: CP Ordering Physician: SCOTTY CORTES Performed By: Madelaine Guo Interpretation Summary The left ventricular ejection fraction is normal. There is borderline concentric left ventricular hypertrophy. The left ventricle is grossly normal size. Doppler measurements suggest pseudonormalized left ventricular relaxation, which is associated with grade II/IV or mild to moderate diastolic dysfunction Wall motion cannot be accurately commented on, but no definite regional wall motion abnormalities noted. The right ventricular systolic function is normal. The right ventricle is grossly normal size. The right atrium is normal in size The left atrial size is normal. There is a trace amount of mitral regurgitation There is no mitral valve stenosis. No aortic regurgitation is present. There is no aortic valve stenosis There is no tricuspid stenosis. No tricuspid regurgitation. The aortic root is not well visualized but is probably normal size. The inferior vena cava appeared normal and decreased > 50% with respiration (RAP 5-10 mmHg) There is no pericardial effusion. MMode/2D Measurements & Calculations RVDd: 3.9 cm LVIDd: 5.4 cm FS: 42.6 % Ao root diam: 2.9 cm IVSd: 0.93 cm LVIDs: 3.1 cm EDV(Teich): 144.0 ml LVPWd: 0.84 cm ESV(Teich): 38.7 ml Ao root area: 6.8 cm2 EF(Teich): 73.2 % LA dimension: 3.2 cm Doppler Measurements & Calculations MV E max sunshine: MV P1/2t max sunshine: Ao V2 max: LV V1 max P.0 cm/sec 80.5 cm/sec 122.6 cm/sec 5.1 mmHg MV A max sunshine: MV P1/2t: 70.1 msec Ao max PG: LV V1 max: 87.4 cm/sec 6.0 mmHg 113.0 cm/sec MV E/A: 0.90 MVA(P1/2t): 3.1 cm2 MV dec slope: 336.0 cm/sec2 MV dec time: 0.23 sec PA V2 max: 72.1 cm/sec PA max P.1 mmHg Left Ventricle The left ventricle is grossly normal size. There is borderline concentric left ventricular hypertrophy. The left ventricular ejection fraction is normal. Doppler measurements suggest pseudonormalized left ventricular relaxation, which is associated with grade II/IV or mild to moderate diastolic dysfunction. Wall motion cannot be accurately commented on, but no definite regional wall motion abnormalities noted. Right Ventricle The right ventricle is grossly normal size. There is normal right ventricular wall thickness. The right ventricular systolic function is normal. Atria The right atrium is normal in size. The left atrial size is normal. Interarterial septum not well visualized and not well dopplered. Cannot comment on ASD/PFO presence. Mitral Valve The mitral valve is grossly normal. There is no mitral valve stenosis. There is a trace amount of mitral regurgitation. Aortic Valve The aortic valve is grossly normal. There is no aortic valve stenosis. No aortic regurgitation is present. Tricuspid Valve The tricuspid valve is not well visualized, but is grossly normal. There is no tricuspid stenosis. No tricuspid regurgitation. Pulmonic Valve The pulmonic valve is not well visualized. Great Vessels The aortic root is not well visualized but is probably normal size. The inferior vena cava appeared normal and decreased > 50% with respiration (RAP 5-10 mmHg). Effusions There is no pericardial effusion. : SCOTTY CORTES > Scotty Cortes
[2018-04-29 19:19] LABS: CREATINE KINASE MB 0.41 ng/mL (<4.55); TROPONIN I 0.055 ng/mL
--- NOTE | 2018-04-29 20:27 | PDOC CONSULTATION ---
Consultation Consult Date: 04/29/18 Attending physician:: MARQUISE EPPS Consult reason:: Chest pain History of Present Illness Admission Date/PCP: 04/29/18 02:09 CHERYLE DEAN Patient complains of: Chest pain History of Present Illness: ROSALBA COELLO is a 47 year old male with a past medical history of coronary artery disease status post stent placement January 2018 with follow-up stress test 1 month ago which was unremarkable according to the patient. He presents 1 hour after the onset of retrosternal chest pain which was 4-5 intensity sharp in nature which reminded him of his acute coronary in January 2018. In addition he had diaphoresis, nausea without vomiting and shortness of breath. Patient was prompted to take sublingual nitro resulting in significant improvement. He is otherwise unable to identify exacerbating factors. In the emergency room he has an unremarkable workup is referred to the hospitalist for observation. He is currently pain-free. He denies recent changes or missing medications. This history was reviewed with the patient and confirmed. Patient denied any recurrence of chest pain. He claims that he had 2 stents placed. However these results are not available. Patient claims that his last stress test was performed about a month ago at [facility] and was noted to be unremarkable. I do not have access to these records. Past Medical History Cardiac Medical History: Reports: Coronary Artery Disease, Hyperlipidema, Hypertension Endocrine Medical History: Reports: Diabetes Mellitus Type 2, Hypothyroidism Past Surgical History Past Surgical History: Reports: Coronary Stent Social History Information Source: Patient Lives with: Family Smoking Status: Unknown if Ever Smoked Cigarettes Packs Per Day: 0.5 Number of Years Smokin Last Time Smoked: 04/28/2018 Frequency of Alcohol Use: None Hx Recreational Drug Use: No Drugs: None Hx Prescription Drug Abuse: No - Advance Directive Resuscitation Status: Full Code Surrogate healthcare decision maker:: Patient's is the surrogate decision maker Family History Family History: CAD, Hypertension Parental Family History Reviewed: Yes Children Family History Reviewed: Yes Sibling(s) Family History Reviewed.: Yes Medication/Allergy Home Medications: Insulin Aspart [Novolog Insulin (Aspart) 100 unit/mL] 3 unit SQ .SLIDING SCALE MEALS 04/29/18 Isosorbide Mononitrate [Isosorbide Mononitrate ER] 15 mg PO DAILY 04/29/18 Nitroglycerin [Nitrostat] 0.4 ml SL Q5MP PRN 04/29/18 Oxycodone HCl [Oxycodone HCl ER] 20 mg PO Q12 04/29/18 Oxycodone HCl/Acetaminophen [Oxycodone-Acetaminophen 10-325] 1 tab PO DAILYP PRN 04/29/18 Rosuvastatin Calcium [Crestor 20 mg Tablet] 20 mg PO QHS 04/29/18 Allergies/Adverse Reactions: Penicillins Allergy (Verified 04/28/18 23:39) Review of Systems Review of Systems: Please see history of present illness and past medical history as wall. Constitutional: No fever or chills reported. Head : No recent chronic headaches, recent head injury. Eyes: No recent eye pain, diplopia, redness, discharge, acute visual changes. Ears: No recent chronic ear pain, acute hearing loss, ear discharge. Oral cavity: No recent ulcerations, bleeding, oral cavity discomfort. Neck: No recent acute neck pain reported. Hematologic: No recent easy bruising or bleeding. Lymphatic: No recent lymph node enlargement reported. Cardiovascular system review: See history of present illness. Respiratory system review: No hemoptysis or blood clots in the lungs reported. Mild Shortness of breath on exertion Gastrointestinal system review: Negative for any recent acute hematemesis, melena. Genitourinary system review: No recent acute or chronic hematuria, flank pain, UTI etc. reported. Skin system review: Negative for any recent abnormal bruising, no rash, no pruritus reported. Neurologic: No prior history of strokes, mini strokes, seizure disorder. Psychologic: No history of major psychosis or major depression reported. Musculoskeletal: Minor aches and pains reported. No acute joint swelling reported. Endocrine: No recent polyuria, polydipsia, recent heat or cold intolerance. Physical Exam Vital Signs: Temp Pulse Resp BP Pulse Ox 97.9 F 64 16 106/71 97 04/29/18 19:32 04/29/18 19:32 04/29/18 19:32 04/29/18 19:32 04/29/18 19:32 Intake & Output 04/28/18 04/29/18 04/30/18 06:59 06:59 06:59 Intake Total 3 1584 Balance 3 1584 Weight 109.9 kg Exam: GENERAL: well-nourished and in no acute distress. Alert and oriented x3 HEAD: Atraumatic, normocephalic. EYES: Pupils equal round and reactive to light, extraocular movements intact, sclera anicteric, conjunctiva are normal. ENT: TMs normal, nares patent, oropharynx clear without exudates. Moist mucous membranes. No oral ulcerations or bleeding gums noted NECK: supple without lymphadenopathy. Trachea is central. No cervical or axillary lymphadenopathy noted. Carotids are 2+, JVD WNL LUNGS: Respiration seems nonlabored, no significant accessory muscle action noted. Breath sounds clear to auscultation bilaterally and equal noted. No wheezes rales or rhonchi noted. No significant dullness noted on percussion. CHEST: Palpation of the chest wall shows no significant chest wall tenderness. HEART: [place] DIGESTER, No PSH, 1/6 ALO aortic area, 1/6 [place] systolic murmur mitral area, no rubs, no gallops. ABDOMEN: Soft, no significant tenderness appreciated, normoactive bowel sounds. No guarding, no rebound. No rigidity noted . No masses appreciated. EXTREMITIES: Pedal pulses are 1-2+, no calf tenderness noted. No clubbing or cyanosis. negative pedal edema noted NEUROLOGICAL: Focused neurological exam showed no significant neurologic deficit. Normal speech, no focal weakness appreciated. PSYCH: Normal mood, normal affect. Judgment and insight within normal limits. SKIN: No significant ecchymosis, skin is noted to be warm. MUSCULOSKELETAL EXAM: No significant acute joint swelling noted. Results Laboratory Results: 04/29/18 04/29/18 04/29/18 06:36 12:09 18:25 CK-MB (CK-2) 0.43 0.45 0.41 Troponin I 0.019 0.038 0.055 EKG Comments: Sinus rhythm, no acute ST-T wave changes noted Impressions: Chest X-Ray 04/29/18 01:31 IMPRESSION: 1. Left basilar airspace opacity concerning for pneumonia. Abdomen X-Ray 04/29/18 06:09 IMPRESSION: NO RADIOGRAPHIC EVIDENCE FOR ACUTE ABDOMINAL DISEASE. Assessment & Plan - Diagnosis (1) Chest pain Qualifiers: Chest pain type: unspecified Qualified Code(s): R07.9 - Chest pain, unspecified Is this a current diagnosis for this admission?: Yes (2) Hypertension Qualifiers: Hypertension type: essential hypertension Qualified Code(s): I10 - Essential (primary) hypertension Is this a current diagnosis for this admission?: Yes (3) Diabetes Qualifiers: Diabetes mellitus type: type 2 Diabetes mellitus [employer] insulin use: unspecified [employer] insulin use status Diabetes mellitus complication status : with unspecified complications Qualified Code(s): E11.8 - Type 2 diabetes mellitus with unspecified complications Is this a current diagnosis for this admission?: Yes (4) Obesity Qualifiers: Obesity type: unspecified obesity type Obesity classification: unspecified obesity classification Is this a current diagnosis for this admission?: Yes (5) CAD (coronary artery disease) Qualifiers: Coronary Disease-Associated Artery/Lesion type: [place] artery [place] vs. transplanted heart: [place] heart Associated angina: angina presence unspecified Qualified Code(s): I25.10 - Atherosclerotic heart disease of [place] coronary artery without angina pectoris Is this a current diagnosis for this admission?: Yes - Notes Notes: Chest pain: Patient is status post coronary intervention however a stress test was negative a month ago. If patient has recurrent chest pain, EKG changes and are positive troponin, recommend tertiary care transfer for heart catheterization. Diabetes: Currently under adequate management. Obesity: Patient will benefit from weight loss therapy and evaluation for sleep apnea. Sleep apnea now is considered a major risk factor for sudden cardiac and also myocardial infarction. Patient gives history of hypertension but currently not on any antihypertensive. Will recommend ESTEFANÍA inhibitor or ARB therapy at low-dose to start with. Dyslipidemia: Continue hypotensive statin therapy. Coronary artery disease: Patient describes history of recent stents placement within the last 6 months. Management dubois patient should continue with dual antiplatelet therapy, beta- cruzito therapy, hypotensive statin therapy, ESTEFANÍA inhibitors/ARB therapy. 2D echocardiogram performed today with normal LVEF. No definite wall motion abnormalities were noted. - Time Time Spent: 30 to 50 Minutes - CODE STATUS was discussed, patient remains full code. Surrogate decision-maker patient's . Multiple medical problems were addressed. More than 50% of the time spent coordinating care, discussing management plans with involved caregivers. Management plans discussed with involved personnels. Medical decision making was of moderate to high complexity , patient's has multiple comorbidities. Medications reviewed and adjusted accordingly: Yes
[2018-04-29] MEDS: ATORVASTATIN CALCIUM 40 MG TABLET PO SCH (21:23)
[2018-04-29] MEDS ORDERED: SIMVASTATIN 40 MG TABLET PO SCH (22:00)
[2018-04-29] MEDS ORDERED: (PENDING PHARMACY ID) (Rosuvastatin Calcium [Crestor 20 Mg Tablet] 20 MG) PO SCH (22:00)
[2018-04-29] MEDS ORDERED: ATORVASTATIN CALCIUM 40 MG TABLET PO SCH (22:00)
[2018-04-29] MEDS: OXYCODONE HCL SR 10 MG TABLET PO SCH (23:50)
--- NOTE | 2018-04-30 00:22 | EKG REPORT ---
SEVERITY:- NORMAL ECG - SINUS RHYTHM : Confirmed by: Ceci Min MD 30-Apr-2018 00:21:00
[2018-04-30] MEDS: OXYCODONE-ACETAMINOPHEN 5-325 MG TABLET PO PRN ×3 (05:51→20:31)
[2018-04-30] MEDS: GABAPENTIN 300 MG CAPSULE PO SCH ×3 (05:51→21:16)
[2018-04-30 06:35] LABS: ABSOLUTE EOSINOPHILS # (AUTO) 0.3 10^3/uL (0.0-0.6); ABSOLUTE LYMPHOCYTES (AUTO) 2.4 10^3/uL (0.5-4.7); ABSOLUTE MONOCYTES (AUTO) 0.7 10^3/uL (0.1-1.4); ABSOLUTE NEUT (AUTO) 6.2 10^3/uL (1.7-8.2); BASOPHILS % (AUTO) 0.4 % (0-2); EOSINOPHILS % (AUTO) 3.5 % (0-6); HEMATOCRIT 39.7 % (37.9-51.0); HEMOGLOBIN 13.6 g/dL (13.5-17.0); LYMPHOCYTES % (AUTO) 24.9 % (13-45); MEAN CORPUSCULAR HEMOGLOBIN 31.3 pg (27.0-33.4); MEAN CORPUSCULAR HGB CONC 34.4 g/dL (32.0-36.0); MEAN CORPUSCULAR VOLUME 91 fl (80-97); MONOCYTES % (AUTO) 7.5 % (3-13); PLATELET COUNT 241 10^3/uL (150-450); RED BLOOD COUNT 4.35 10^6/uL (4.35-5.55); RED CELL DISTRIBUTION WIDTH 13.8 % (11.5-14.0); SEGMENTED NEUTROPHILS % (AUTO) 63.7 % (42-78); TOTAL CELLS COUNTED % (AUTO) 100 %; WHITE BLOOD COUNT 9.7 10^3/uL (4.0-10.5)
[2018-04-30 06:48] LABS: ALANINE AMINOTRANSFERASE 27 U/L (21-72); ALBUMIN 3.9 g/dL (3.5-5.0); ALKALINE PHOSPHATASE 52 U/L (38-126); ANION GAP 11 (5-19); ASPARTATE AMINO TRANSFERASE 14 U/L (17-59); BILIRUBIN,DIRECT 0.3 mg/dL (0.0-0.4); BILIRUBIN,TOTAL 0.7 mg/dL (0.2-1.3); BLOOD UREA NITROGEN 20 mg/dL (7-20); CALCIUM 9.3 mg/dL (8.4-10.2); CARBON DIOXIDE 26 mmol/L (22-30); CHLORIDE 103 mmol/L (98-107); GLUCOSE 204 mg/dL (75-110); POTASSIUM 4.6 mmol/L (3.6-5.0); SODIUM 139.5 mmol/L (137-145); TOTAL PROTEIN 6.4 g/dL (6.3-8.2)
[2018-04-30 06:49] LABS: CREATINE KINASE < 20 U/L (55-170)
[2018-04-30] MEDS ORDERED: ISOSORBIDE MONONITRATE 30 MG TAB.ER.24H PO SCH (10:00)
[2018-04-30] MEDS ORDERED: ASPIRIN 81 MG TABLET, ENT COATED PO SCH (10:00)
[2018-04-30] MEDS: INSULIN LISPRO 100 UNIT/ML 3 ML VIAL SUBCUT PRN ×2 (10:20→17:08)
[2018-04-30] MEDS: OXYCODONE HCL SR 10 MG TABLET PO SCH ×2 (10:21→21:16)
[2018-04-30] MEDS: DOCUSATE SODIUM 100 MG CAPSULE PO SCH ×2 (10:22→17:10)
--- NOTE | 2018-04-30 12:12 | PDOC PROGRESS REPORT ---
Subjective Progress Note for:: 04/30/18 Subjective:: Patient seems to be doing better with gradual improvement. Pt is denying any chest arm or neck discomfort. Patient denying any PND, orthopnea. Patient denied any sustained palpitations, dizziness, syncope, near syncope. Patient denying any fever chills. Patient denying any other significant discomfort. Patient is maintaining sinus rhythm. Patient's troponin I are noted to be somewhat abnormal and had risen somewhat from baseline. Review of systems: Rest review of systems negative. Medications: Medications have been reviewed. Reason For Visit: CP Physical Exam Vital Signs: Temp Pulse Resp BP Pulse Ox 98.4 F 60 18 129/81 H 97 04/30/18 08:02 04/30/18 08:02 04/30/18 08:02 04/30/18 08:02 04/30/18 08:02 Intake & Output 04/29/18 04/30/18 05/01/18 06:59 06:59 06:59 Intake Total 3 2015 Balance 3 2015 Weight 109.9 kg 107.5 kg Exam: GENERAL: well-nourished and in no acute distress. Alert and oriented x3 HEAD: Atraumatic, normocephalic. EYES: Pupils equal round and reactive to light, extraocular movements intact, sclera anicteric, conjunctiva are normal. ENT: TMs normal, nares patent, oropharynx clear without exudates. Moist mucous membranes. No oral ulcerations or bleeding gums noted NECK: supple without lymphadenopathy. Trachea is central. No cervical or axillary lymphadenopathy noted. Carotids are 2+, JVD WNL LUNGS: Respiration seems nonlabored, no significant accessory muscle action noted. Breath sounds clear to auscultation bilaterally and equal noted. No wheezes rales or rhonchi noted. No significant dullness noted on percussion. CHEST: Palpation of the chest wall shows no significant chest wall tenderness. 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 ABDOMEN: Soft, no significant tenderness appreciated, normoactive bowel sounds. No guarding, no rebound. No rigidity noted . No masses appreciated. EXTREMITIES: Pedal pulses are 1-2+, no calf tenderness noted. No clubbing or cyanosis. negative pedal edema noted NEUROLOGICAL: Focused neurological exam showed no significant neurologic deficit. Normal speech, no focal weakness appreciated. PSYCH: Normal mood, normal affect. Judgment and insight within normal limits. SKIN: No significant ecchymosis, skin is noted to be warm. MUSCULOSKELETAL EXAM: No significant acute joint swelling noted. Results Laboratory Results: 04/30/18 06:20 04/30/18 06:20 04/30/18 04/30/18 06:20 06:20 WBC 9.7 RBC 4.35 Hgb 13.6 Hct 39.7 MCV 91 MCH 31.3 MCHC 34.4 RDW 13.8 Plt Count 241 Seg Neutrophils % 63.7 Lymphocytes % 24.9 Monocytes % 7.5 Eosinophils % 3.5 Basophils % 0.4 Absolute Neutrophils 6.2 Absolute Lymphocytes 2.4 Absolute Monocytes 0.7 Absolute Eosinophils 0.3 Absolute Basophils 0.0 Sodium 139.5 Potassium 4.6 Chloride 103 Carbon Dioxide 26 Anion Gap 11 BUN 20 Creatinine 0.95 Est GFR ( Amer) > 60 Est GFR (Non-Af Amer) > 60 Glucose 204 H Calcium 9.3 Total Bilirubin 0.7 AST 14 L ALT 27 Alkaline Phosphatase 52 Total Protein 6.4 Albumin 3.9 04/29/18 04/29/18 04/29/18 06:36 12:09 18:25 Creatine Kinase CK-MB (CK-2) 0.43 0.45 0.41 Troponin I 0.019 0.038 0.055 NT-Pro-B Natriuret Pep 04/30/18 04/30/18 06:20 06:20 Creatine Kinase < 20 L CK-MB (CK-2) Troponin I NT-Pro-B Natriuret Pep 23 Impressions: Chest X-Ray 04/29/18 01:31 IMPRESSION: 1. Left basilar airspace opacity concerning for pneumonia. Abdomen X-Ray 04/29/18 06:09 IMPRESSION: NO RADIOGRAPHIC EVIDENCE FOR ACUTE ABDOMINAL DISEASE. Assessment & Plan - Diagnosis (1) Chest pain Qualifiers: Chest pain type: unspecified Qualified Code(s): R07.9 - Chest pain, unspecified Is this a current diagnosis for this admission?: Yes (2) Hypertension Qualifiers: Hypertension type: essential hypertension Qualified Code(s): I10 - Essential (primary) hypertension Is this a current diagnosis for this admission?: Yes (3) Diabetes Qualifiers: Diabetes mellitus type: type 2 Diabetes mellitus care home insulin use: unspecified adjunct faculty for medical terminology insulin use status Diabetes mellitus complication status : with unspecified complications Qualified Code(s): E11.8 - Type 2 diabetes mellitus with unspecified complications Is this a current diagnosis for this admission?: Yes (4) Obesity Qualifiers: Obesity type: unspecified obesity type Obesity classification: unspecified obesity classification Is this a current diagnosis for this admission?: Yes (5) CAD (coronary artery disease) Qualifiers: Coronary Disease-Associated Artery/Lesion type: [place] artery [place] vs. transplanted heart: [place] heart Associated angina: angina presence unspecified Qualified Code(s): I25.10 - Atherosclerotic heart disease of [place] coronary artery without angina pectoris Is this a current diagnosis for this admission?: Yes (6) Tobacco abuse Is this a current diagnosis for this admission?: Yes - Notes Notes: Patient's troponin I have risen from baseline. Have ordered a repeat one for tomorrow morning. Given patient's negative stress test 1 month ago, do not feel it is worthwhile to repeat the stress test. Better option may be sending him for a heart catheterization. This was discussed with the patient and he is agreeable. Have reported this to the hospitalist. Other option would be to keep him here and have a inpatient cath on Wednesday. Do not feel patient is safe for discharge at this point, today. Have started patient on Plavix loading and daily dose. Somehow this got missed yesterday. Chest pain: Patient is status post coronary intervention however a stress test was negative a month ago. If patient has recurrent chest pain, EKG changes and are positive troponin, recommend tertiary care transfer for heart catheterization. Diabetes: Currently under adequate management. Obesity: Patient will benefit from weight loss therapy and evaluation for sleep apnea. Sleep apnea now is considered a major risk factor for sudden cardiac and also myocardial infarction. Patient gives history of hypertension but currently not on any antihypertensive. Will recommend ESTEFANÍA inhibitor or ARB therapy at low-dose to start with. Dyslipidemia: Continue high potency statin therapy. Tobacco abuse: Patient describes history of smoking now and then. However does have significant exposure to secondhand smoking as well. Patient was advised to avoid both firsthand and secondhand smoking. Ill effects of this were discussed. Coronary artery disease: Patient describes history of recent stents placement within the last 6 months. Management dubois patient should continue with dual antiplatelet therapy, beta- cruzito therapy, hypotensive statin therapy, ESTEFANÍA inhibitors/ARB therapy. 2D echocardiogram performed today with normal LVEF. No definite wall motion abnormalities were noted. - Time Time with patient: Greater than 35 minutes - CODE STATUS was discussed, patient remains full code. Surrogate decision-maker patient's . Multiple medical problems were addressed. More than 50% of the time spent coordinating care, discussing management plans with involved caregivers. Management plans discussed with involved personnels. Medical decision making was of moderate to high complexity, patient's has multiple comorbidities. Medications reviewed and adjusted accordingly: Yes
[2018-04-30] MEDS ORDERED: CLOPIDOGREL BISULFATE 300 MG TABLET PO ONE (13:00)
[2018-04-30] MEDS ORDERED: TICAGRELOR 90 MG TABLET PO ONE ×2 (13:30→22:00)
--- NOTE | 2018-04-30 15:49 | PDOC TRANSFER SUMMARY ---
General Admission Date/PCP: 04/29/18 02:09 CHERYLE DEAN Admission Date: 04/29/18 Transfer Date: 04/30/18 Accepting Facility: [facility] Resuscitation Status: Full Code - Transfer Diagnosis (1) CAD (coronary artery disease) Is this a current diagnosis for this admission?: Yes (2) Chest pain Is this a current diagnosis for this admission?: Yes (3) Diabetes Is this a current diagnosis for this admission?: Yes (4) Hypertension Is this a current diagnosis for this admission?: Yes (5) Obesity Is this a current diagnosis for this admission?: Yes (6) Tobacco abuse Is this a current diagnosis for this admission?: Yes - Transfer Medications Home Medications: Insulin Aspart [Novolog Insulin (Aspart) 100 unit/mL] 0 unit SQ .SLIDING SCALE MEALS 04/29/18 Isosorbide Mononitrate [Isosorbide Mononitrate ER] 15 mg PO DAILY 04/29/18 Nitroglycerin [Nitrostat] 0.4 ml SL Q5MP PRN 04/29/18 Oxycodone HCl [Oxycodone HCl ER] 20 mg PO Q12 04/29/18 Oxycodone HCl/Acetaminophen [Oxycodone-Acetaminophen 10-325] 1 tab PO DAILYP PRN 04/29/18 Rosuvastatin Calcium [Crestor 20 mg Tablet] 20 mg PO QHS 04/29/18 Amlodipine Besylate [Norvasc 2.5 mg Tablet] 2.5 mg PO QHS 04/30/18 Levothyroxine Sodium [Synthroid 0.088 mg Tablet] 0.088 mg PO DAILY 04/30/18 Lisinopril/Hydrochlorothiazide [Lisinopril-Hctz 20-12.5 mg Tab] 1 tab PO DAILY 04/30/18 Metformin HCl [Glucophage 500 mg Tablet] 1,000 mg PO BIDACBS 04/30/18 Metoprolol Tartrate [Lopressor 25 mg Tablet] 12.5 mg PO Q12 04/30/18 Ticagrelor [Brilinta 90 mg Tablet] 90 mg PO Q12 04/30/18 Transfer Medications: Current Medications Aspirin (Ecotrin 81 Mg Ec Tablet) 81 mg PO DAILY SANTOS Stop: 05/30/18 09:59 Last Admin: 04/30/18 10:21 Dose: 81 mg Atorvastatin Calcium (Lipitor 40 Mg Tablet) 80 mg PO QHS SANTOS Stop: 05/29/18 21:59 Last Admin: 04/29/18 21:23 Dose: 80 mg Dextrose (Dextrose Inj 50% Syringe (25 Gm/50 Ml)) 12.5 gm IV PRN PRN; Protocol PRN Reason: FOR BG 50-69 IN ALERT PATIENT Stop: 05/29/18 03:09 Dextrose (Dextrose Inj 50% Syringe (25 Gm/50 Ml)) 25 gm IV PRN PRN; Protocol PRN Reason: PER PROTOCOL Stop: 05/29/18 03:09 Docusate Sodium (Colace 100 Mg Capsule) 100 mg PO BID [facility] Stop: 05/29/18 09:59 Last Admin: 04/30/18 10:22 Dose: 100 mg Gabapentin (Neurontin 300 Mg Capsule) 300 mg PO Q8 [facility] Stop: 05/29/18 05:59 Last Admin: 04/30/18 13:26 Dose: 300 mg Glucagon (Glucagen Inj 1 Mg Vial) 1 mg IM PRN PRN; Protocol PRN Reason: Evaluate for BG < 70 Stop: 05/29/18 03:09 Glucose (Glutose 40% Gel 15 Gm Tube) 15 gm PO PRN PRN; Protocol PRN Reason: FOR BG 50-69 IN ALERT PATIENT Stop: 05/29/18 03:09 Glucose (Glutose 40% Gel 15 Gm Tube) 30 gm PO PRN PRN; Protocol PRN Reason: FOR BG < 50 IN ALERT PATIENT Stop: 05/29/18 03:09 Insulin Human Lispro (Humalog Insulin 100 Unit/1 Ml 3 Ml Vial) 0 - 12 unit SUBCUT ACP PRN; Protocol PRN Reason: PER PROTOCOL Stop: 05/29/18 03:09 Last Admin: 04/30/18 10:20 Dose: 4 unit Isosorbide Mononitrate (Imdur 30 Mg Tablet.Er) 15 mg PO DAILY [facility] Stop: 05/30/18 09:59 Last Admin: 04/30/18 10:21 Dose: 15 mg Lidocaine HCl (Xylocaine 2% Viscous Soln 20 Ml Udcup) 5 ml PO QIDP PRN PRN Reason: TOOTH PAIN Stop: 05/29/18 15:37 Last Admin: 04/29/18 17:40 Dose: 5 ml Nitroglycerin (Nitrostat 0.4 Mg (1/150 Gr) Tabs 25/Bottle) 1 tab SL Q5MP PRN PRN Reason: FOR CHEST PAIN Nitroglycerin (Nitrostat 0.4 Mg (1/150 Gr) Tabs 25/Bottle) 1 tab SL Q5MP PRN PRN Reason: FOR CHEST PAIN Stop: 05/29/18 10:06 Oxycodone HCl (Oxycontin Sr 10 Mg Tablet) 20 mg PO Q12 SANTOS Stop: 05/06/18 21:59 Last Admin: 04/30/18 10:21 Dose: 20 mg Oxycodone/Acetaminophen (Percocet 5-325 Mg Tablet) 2 tab PO Q6HP PRN PRN Reason: FOR PAIN Stop: 05/06/18 12:11 Last Admin: 04/30/18 13:25 Dose: 2 tab Sodium Chloride (Saline Flush 2.5 Ml Monoject Prefil Syrin) 2.5 ml IV Q8 SANTOS Stop: 05/29/18 05:59 Last Admin: 04/30/18 13:27 Dose: 2.5 ml Ticagrelor (Brilinta 90 Mg Tablet) 90 mg PO BID SANTOS Stop: 05/31/18 09:59 Ticagrelor (Brilinta 90 Mg Tablet) 90 mg PO FELICIANO@2200 ONE Stop: 04/30/18 22:01 - Allergies Allergies/Adverse Reactions: Penicillins Allergy (Verified 04/28/18 23:39) - Diet/Activity Discharge Diet: Cardiac Hospital Course Hospital Course: ROSALBA COELLO is a 47 y.o. M with a PMH of CAD, DM, HTN, HLD, tobacco abuse, and obesity. Recent AR in 01/2018 (blockages in LAD and Ramus Intermedius - only able to stent LAD, balloon angioplasty done on RI). The patient presented to [facility] ED 1 hour after the onset of retrosternal chest pain, which he described as sharp in nature. The patient states the pain reminded him of his AR that he experienced in 01/2018. In addition to his chest pain, the patient experienced diaphoresis, nausea without vomiting and shortness of breath. This prompted the patient to take sublingual nitro (2 tablets 5 min apart) resulting in significant improvement of his chest pain. Initial EKG shows NSR with very mild ST elevation in inferior leads (~0.02sec). Initial Troponin < 0.012. CXR benign. The patient was admitted to the hospitalist service with cardiology consulting. While at [facility], the patient did not experience a reoccurrence of the severe chest pain that brought him to the hospital. His vital signs remained stable. Blood pressure was maintained on his home regimen and dual antiplatelet therapy was continued with aspirin and Brillinta. An ECHOcardiogram was completed, it demonstrates a normal LVEF, borderline concentric LVH, grade 2 diastolic dysfunction, and trace amounts of MR. The serial Troponin levels were slowly rising from 0.012->0.055. The patient's telemetry monitoring remained unchanged and, again, the patient did not report subsequent episodes of chest pain. Golf Ball Marker, Dr. Zuniga, was concerned about the patient's risk for re- occlusion and recommended the patient be transferred to a tertiary facility for a potential cardiac catheterization. Dr. Bradly Aleman of [facility] graciously accepted the patient. Plan to transfer the patient to [facility] via [facility]. Physical Exam Vital Signs: Temp Pulse Resp BP Pulse Ox 98.4 F 60 18 129/81 H 97 04/30/18 08:02 04/30/18 14:00 04/30/18 08:02 04/30/18 08:02 04/30/18 08:02 Intake & Output 04/29/18 04/30/18 05/01/18 06:59 06:59 06:59 Intake Total 3 2015 Balance 3 2015 Weight 109.9 kg 107.5 kg General appearance: PRESENT: no acute distress Eye exam: PRESENT: conjunctiva pink, PERRLA Mouth exam: PRESENT: moist Teeth exam: PRESENT: poor dentation Neck exam: PRESENT: full ROM Respiratory exam: PRESENT: clear to auscultation apolinar, symmetrical, unlabored Cardiovascular exam: PRESENT: RRR, +S1, +S2 Pulses: PRESENT: normal radial pulses, normal dorsalis pedis pul GI/Abdominal exam: PRESENT: normal bowel sounds, soft. ABSENT: tenderness Rectal exam: PRESENT: deferred Extremities exam: PRESENT: full ROM Musculoskeletal exam: PRESENT: ambulatory, full ROM Neurological exam: PRESENT: alert, awake, oriented to person, oriented to place , oriented to time, oriented to situation Results Laboratory Results: 04/30/18 06:20 04/30/18 06:20 04/30/18 04/30/18 06:20 06:20 WBC 9.7 RBC 4.35 Hgb 13.6 Hct 39.7 MCV 91 MCH 31.3 MCHC 34.4 RDW 13.8 Plt Count 241 Seg Neutrophils % 63.7 Lymphocytes % 24.9 Monocytes % 7.5 Eosinophils % 3.5 Basophils % 0.4 Absolute Neutrophils 6.2 Absolute Lymphocytes 2.4 Absolute Monocytes 0.7 Absolute Eosinophils 0.3 Absolute Basophils 0.0 Sodium 139.5 Potassium 4.6 Chloride 103 Carbon Dioxide 26 Anion Gap 11 BUN 20 Creatinine 0.95 Est GFR ( Amer) > 60 Est GFR (Non-Af Amer) > 60 Glucose 204 H Calcium 9.3 Total Bilirubin 0.7 AST 14 L ALT 27 Alkaline Phosphatase 52 Total Protein 6.4 Albumin 3.9 04/29/18 04/29/18 04/29/18 06:36 12:09 18:25 Creatine Kinase CK-MB (CK-2) 0.43 0.45 0.41 Troponin I 0.019 0.038 0.055 NT-Pro-B Natriuret Pep 04/30/18 04/30/18 04/30/18 06:20 06:20 12:24 Creatine Kinase < 20 L CK-MB (CK-2) Troponin I NT-Pro-B Natriuret Pep 23 15 Impressions: Chest X-Ray 04/29/18 01:31 IMPRESSION: 1. Left basilar airspace opacity concerning for pneumonia. Abdomen X-Ray 04/29/18 06:09 IMPRESSION: NO RADIOGRAPHIC EVIDENCE FOR ACUTE ABDOMINAL DISEASE. Status: Imported from PACS Plan Discharge Plan: TRANSFER TO [facility] FOR POSSIBLE CARDIAC CATHETERIZATION. Time Spent: Less than 30 Minutes
[2018-04-30] MEDS: LIDOCAINE 2% VISCOUS SOLN 20 ML UDCUP PO PRN (17:09)
[2018-04-30] MEDS ORDERED: KETOROLAC TROMETHAMINE INJ/PF 30 MG/1 ML SDV IV ONE (17:11)
[2018-04-30] MEDS: ATORVASTATIN CALCIUM 40 MG TABLET PO SCH (21:15)
[2018-05-01] MEDS: GABAPENTIN 300 MG CAPSULE PO SCH (05:43)
[2018-05-01] MEDS: OXYCODONE-ACETAMINOPHEN 5-325 MG TABLET PO PRN (05:43)
[2018-05-01 09:14] VITALS: BP 147/86
[2018-05-01] MEDS ORDERED: TICAGRELOR 90 MG TABLET PO SCH (10:00)
[2018-05-01] MEDS ORDERED: CLOPIDOGREL BISULFATE 75 MG TABLET PO SCH (10:00)
== END 2018-05-01 09:27 | disposition short-term general hospital (02) | DRG 303 ==
LOC: ER 23:25 → EH 04-29 02:09 → 3S 04-29 05:15 → OBSVTOIN 04-30 15:41
PROVIDERS: ADMIT Internal Medicine; ATTEND Internal Medicine
DX: I25.10 Atherosclerotic heart disease of native coronary artery without angina pectoris (principal); I10 Essential (primary) hypertension; R74.8 Abnormal levels of other serum enzymes; E11.9 Type 2 diabetes mellitus without complications; E03.9 Hypothyroidism, unspecified; E66.9 Obesity, unspecified; I25.2 Old myocardial infarction; E78.5 Hyperlipidemia, unspecified; F17.200 Nicotine dependence, unspecified, uncomplicated; Z88.0 Allergy status to penicillin; Z86.14 Personal history of Methicillin resistant Staphylococcus aureus infection; Z88.8 Allergy status to other drugs, medicaments and biological substances; Z95.5 Presence of coronary angioplasty implant and graft; Z79.899 Other long term (current) drug therapy; Z79.4 Long term (current) use of insulin; Z68.31 Body mass index [BMI] 31.0-31.9, adult
CPT/HCPCS: 36415; 71045; 74019; 80053; 82550; 82553; 82962; 83690; 83880; 84484; 85025; 85610; 85730; 93005; 93010; 93306; 99285; G0378; J1815; J1885; J3490

== ENCOUNTER 2018-05-25 12:10 | Emergency (ER) | payer MEDICARE, MEDICAID ==
[2018-05-25 12:26] VITALS: BP 134/83
--- NOTE | 2018-05-25 13:34 | ER Document Report ---
ED Medical Screen (RME) - General Chief Complaint: Chest Pain Stated Complaint: BODY PAIN Time Seen by Provider: 05/25/18 13:31 Notes: 47 years old male presents today with the fall just prior to arrival. Having pain across the chest wall and neck. The fall is from the standing position. No head injury. No loss of consciousness. He had a coronary artery bypass surgery 6 weeks ago. He thinks he has pulled his chest wall sutures and getting pain over the sternum. He also have right thigh swelling redness and warmness at the site of venous graft. No fever chills or other constitutional symptoms He is under the care of pain clinic for chronic pain syndrome TRAVEL OUTSIDE OF THE [place] IN LAST 30 DAYS: No - Related Data Allergies/Adverse Reactions: Penicillins Allergy (Verified 05/25/18 12:11) Past Medical History - Social History Chew tobacco use (# tins/day): No Frequency of alcohol use: None Drug Abuse: None - Past Medical History Cardiac Medical History: Reports: Hx Coronary Artery Disease, Hx Heart Attack, Hx Hypercholesterolemia, Hx Hypertension Endocrine Medical History: Reports: Hx Diabetes Mellitus Type 2, Hx Hypothyroidism Renal/ Medical History: Denies: Hx Peritoneal Dialysis Musculoskeltal Medical History: Reports Hx Musculoskeletal Deformity, Reports Hx Musculoskeletal Trauma Skin Medical History: Reports Hx MRSA Traumatic Medical History: Reports: Hx Fractures Past Surgical History: Reports: Hx Coronary Stent, Hx Oral Surgery - May , Hx Thyroid Surgery - Immunizations Immunizations up to date: Yes Hx Diphtheria, Pertussis, Tetanus Vaccination: Yes History of Influenza Vaccine for 08/2017 - 12/2017 Season: No Physical Exam - Vital signs Vitals: Temp Pulse Resp BP Pulse Ox 98.1 F 80 16 134/83 H 98 05/25/18 12:24 05/25/18 12:24 05/25/18 12:24 05/25/18 12:24 05/25/18 12:24 Course - Vital Signs Vital signs: Temp Pulse Resp BP Pulse Ox 98.1 F 80 16 134/83 H 98 05/25/18 12:24 05/25/18 12:24 05/25/18 12:24 05/25/18 12:24 05/25/18 12:24 Doctor's Discharge - Discharge Referrals: CHERYLE DEAN PA-C [Primary Care Provider] - Follow up as needed
[2018-05-25 14:26] LABS: ABSOLUTE BASOPHILS # (AUTO) 0.1 10^3/uL (0.0-0.2); ABSOLUTE EOSINOPHILS # (AUTO) 0.2 10^3/uL (0.0-0.6); ABSOLUTE LYMPHOCYTES (AUTO) 1.8 10^3/uL (0.5-4.7); ABSOLUTE MONOCYTES (AUTO) 0.9 10^3/uL (0.1-1.4); ABSOLUTE NEUT (AUTO) 8.9 10^3/uL (1.7-8.2); BASOPHILS % (AUTO) 0.5 % (0-2); EOSINOPHILS % (AUTO) 1.9 % (0-6); HEMATOCRIT 36.1 % (37.9-51.0); HEMOGLOBIN 12.2 g/dL (13.5-17.0); LYMPHOCYTES % (AUTO) 15.1 % (13-45); MEAN CORPUSCULAR HEMOGLOBIN 30.1 pg (27.0-33.4); MEAN CORPUSCULAR HGB CONC 33.7 g/dL (32.0-36.0); MEAN CORPUSCULAR VOLUME 89 fl (80-97); MONOCYTES % (AUTO) 7.2 % (3-13); PLATELET COUNT 517 10^3/uL (150-450); RED BLOOD COUNT 4.04 10^6/uL (4.35-5.55); SEGMENTED NEUTROPHILS % (AUTO) 75.3 % (42-78); TOTAL CELLS COUNTED % (AUTO) 100 %; WHITE BLOOD COUNT 11.8 10^3/uL (4.0-10.5)
--- NOTE | 2018-05-25 14:30 | RADIOLOGY REPORT (SQ) ---
EXAM DESCRIPTION: CHEST 2 VIEWS COMPLETED DATE/TIME: 05/25/2018 2:19 pm REASON FOR STUDY: Chest pain COMPARISON: November 2016 EXAM PARAMETERS: NUMBER OF VIEWS: two views TECHNIQUE: Digital Frontal and Lateral radiographic views of the chest acquired. RADIATION DOSE: NA LIMITATIONS: none FINDINGS: LUNGS AND PLEURA: No opacities, masses or pneumothorax. There is some blunting of the lef t costophrenic angle which could represent pleural reaction or a tiny pleural effusion MEDIASTINUM AND HILAR STRUCTURES: No masses or contour abnormalities. HEART AND VASCULAR STRUCTURES: Heart normal size. No evidence for failure. BONES: No acute findings. HARDWARE: Patient is status post median sternotomy. OTHER: No other significant finding. IMPRESSION: No acute consolidations. There is some blunting of the left costophrenic angle which co uld represent pleural reaction or small left pleural effusion. Other findings as noted above TECHNICAL DOCUMENTATION: JOB ID: [id number] [employer]- All Rights Reserved Reading location - IP/workstation name: [email or web address]
[2018-05-25 14:46] LABS: ALANINE AMINOTRANSFERASE 20 U/L (21-72); ALBUMIN 4.5 g/dL (3.5-5.0); ALKALINE PHOSPHATASE 94 U/L (38-126); ANION GAP 16 (5-19); ASPARTATE AMINO TRANSFERASE 14 U/L (17-59); BILIRUBIN,DIRECT 0.3 mg/dL (0.0-0.4); BILIRUBIN,TOTAL 0.5 mg/dL (0.2-1.3); BLOOD UREA NITROGEN 10 mg/dL (7-20); CALCIUM 10.1 mg/dL (8.4-10.2); CARBON DIOXIDE 27 mmol/L (22-30); CHLORIDE 99 mmol/L (98-107); GLUCOSE 155 mg/dL (75-110); POTASSIUM 4.1 mmol/L (3.6-5.0); SODIUM 142.1 mmol/L (137-145); TOTAL PROTEIN 7.9 g/dL (6.3-8.2)
--- NOTE | 2018-05-25 14:55 | ER Document Report ---
ED Fall - General Chief Complaint: Chest Pain Stated Complaint: BODY PAIN Time Seen by Provider: 05/25/18 13:31 Notes: The patient is a 47-year-old male, past medical history CAD with CABG on 05/06/18 , DM, HLD, resents after he tripped and fell yesterday. He landed on his left ribs and neck. He is also having right leg swelling around the site of his saphenous vein harvest surgical site. Patient denies increased shortness of breath, fevers, difficulty walking, syncope, increased back pain, numbness or tingling. TRAVEL OUTSIDE OF THE [place] IN LAST 30 DAYS: No - Related data Allergies/Adverse Reactions: Penicillins Allergy (Verified 05/25/18 12:11) Past Medical History - General Information source: Patient - Social History Smoking Status: Former Smoker Chew tobacco use (# tins/day): No Frequency of alcohol use: None Drug Abuse: None Family History: CAD, Hypertension Patient has suicidal ideation: No Patient has homicidal ideation: No - Past Medical History Cardiac Medical History: Reports: Hx Coronary Artery Disease, Hx Heart Attack, Hx Hypercholesterolemia, Hx Hypertension Endocrine Medical History: Reports: Hx Diabetes Mellitus Type 2, Hx Hypothyroidism Renal/ Medical History: Denies: Hx Peritoneal Dialysis Musculoskeletal Medical History: Reports Hx Musculoskeletal Deformity, Reports Hx Musculoskeletal Trauma Skin Medical History: Reports Hx MRSA Traumatic Medical History: Reports: Hx Fractures Past Surgical History: Reports: Hx Coronary Stent, Hx Oral Surgery - May , Hx Thyroid Surgery - Immunizations Immunizations up to date: Yes Hx Diphtheria, Pertussis, Tetanus Vaccination: Yes Review of Systems - Review of Systems Notes: REVIEW OF SYSTEMS: CONSTITUTIONAL: -fevers, -chills EENT: -eye pain, -difficulty swallowing, -nasal congestion CARDIOVASCULAR: +left lateral chest wall pain, -syncope. RESPIRATORY: -cough, -SOB GASTROINTESTINAL: -abdominal pain, -nausea, -vomiting, -diarrhea GENITOURINARY: -dysuria, -hematuria MUSCULOSKELETAL: -back pain, +neck pain SKIN: +right leg redness HEMATOLOGIC: -easy bruising or bleeding. LYMPHATIC: -swollen, enlarged glands. NEUROLOGICAL: -altered mental status or loss of consciousness, -headache, - neurologic symptoms PSYCHIATRIC: -anxiety, -depression. ALL OTHER SYSTEMS REVIEWED AND NEGATIVE. Physical Exam - Vital signs Vitals: Temp Pulse Resp BP Pulse Ox 98.1 F 80 16 134/83 H 98 05/25/18 12:24 05/25/18 12:24 05/25/18 12:24 05/25/18 12:24 05/25/18 12:24 - Notes Notes: PHYSICAL EXAMINATION: GENERAL: Well-appearing, well-nourished and in no acute distress. HEAD: Atraumatic, normocephalic. EYES: Pupils equal round and reactive to light, extraocular movements intact, sclera anicteric, conjunctiva are normal. ENT: nares patent, oropharynx clear without exudates. Moist mucous membranes. NECK: Normal range of motion, supple without lymphadenopathy LUNGS: Breath sounds clear to auscultation bilaterally and equal. No wheezes rales or rhonchi. HEART: Regular rate and rhythm without murmurs CHEST WALL: Mild tenderness over left lateral chest wall, no step-offs. ABDOMEN: Soft, nontender, normoactive bowel sounds. No guarding, no rebound. No masses appreciated. EXTREMITIES: Normal range of motion. No cyanosis. NEUROLOGICAL: Cranial nerves grossly intact. Normal speech, normal gait. Normal sensory and motor exams. PSYCH: Normal mood, normal affect. SKIN: Mild erythema around right saphenous vein surgical site, no drainage or fluctuance seen. Two epigastric surgical wounds, one well-healing and one with a small amount of purulent drainage from site. Well-healing sternal surgical scar. Course - Re-evaluation Re-evalutation: Patient appears well. He is in no respiratory distress. Chest x-ray shows a possible small pleural effusions, but no rib fractures or pneumothorax. Blood work is unremarkable, other than slight leukocytosis. He does have a small amount of erythema and tenderness around his saphenous vein site and one of his epigastric surgical sites. Will begin him on antibiotics for early cellulitis and have him follow-up with his surgeon this week for a recheck of his symptoms. Patient given very close return precautions and he understands. - Vital Signs Vital signs: Temp Pulse Resp BP Pulse Ox 98.1 F 80 16 134/83 H 98 05/25/18 12:24 05/25/18 12:24 05/25/18 12:24 05/25/18 12:24 05/25/18 12:24 - Laboratory Result Diagrams: 05/25/18 14:00 05/25/18 14:00 Laboratory results interpreted by me: 05/25/18 05/25/18 14:00 14:00 WBC 11.8 H RBC 4.04 L Hgb 12.2 L Hct 36.1 L Plt Count 517 H Absolute Neutrophils 8.9 H Glucose 155 H AST 14 L ALT 20 L - Diagnostic Test Radiology reviewed: Image reviewed, Reports reviewed Radiology results interpreted by me: CXR: No acute consolidations. There is some blunting of the left costophrenic angle which could represent pleural reaction or small left pleural effusion. Other findings as noted above. RLE US: No DVT or SVT. - EKG Interpretation by Me EKG shows normal: Sinus rhythm, [place], Intervals, QRS Complexes, ST-T Waves Discharge - Discharge Clinical Impression: Chest wall contusion Qualifiers: Encounter type: initial encounter Laterality: left Qualified Code(s): S20.212A - Contusion of left front wall of thorax, initial encounter Cellulitis Qualifiers: Site of cellulitis: extremity Site of cellulitis of extremity: lower extremity Laterality: right Qualified Code(s): L03.115 - Cellulitis of right lower limb Condition: Stable Disposition: HOME, SELF-CARE Additional Instructions: Take the full course of antibiotics. You may also take anti-inflammatories to help with your bruising. Call your surgeon to be seen this week for follow-up and to recheck your surgical sites. MRSA CELLULITIS: You have an infection of your skin and underlying soft tissues called cellulitis. This is due to bacteria, which can enter through any break in the skin, or even through an irritated hair follicle. Untreated, cellulitis will usually worsen and may form an abscess which requires draining. Although many bacterial organisms can cause cellulitis and abscess formations, the most likely bacteria is Methicillin-Resistant Staph Aureus, or MRSA for short. Antibiotics are required. Usually, warm packs or warm soaks, and elevation of the infected area are recommended. You should start getting better within 24 to 36 hours. Most infections respond quickly to the right medication. Follow-up care is important, however, to check for abscess (boil) formation, unsuspected foreign body, or resistant infection. If you develop fever, chills, or if the area of infection is becoming rapidly more swollen or painful, call the doctor at once. ANTIBIOTIC THERAPY: You have been given an antibiotic prescription. It's important that you take all the medication, unless instructed otherwise by your physician. Failure to complete the entire course can result in relapse of your condition. Common side effects of antibiotics include nausea, intestinal cramping, or diarrhea. Women may develop vaginal yeast infections, and babies can get yeast (thrush) in the mouth following the use of antibiotics. Contact your physician if you develop significant side effects from this medication. Allergy to this antibiotic can result in hives, wheezing, faintness, or itching. If symptoms of allergy occur, stop the medication and call the doctor. TRIMETHOPRIM-SULFA: You have been given a prescription for trimethoprim-sulfa (TMS, Septra, Bactrim). This is a combination antibiotic of the sulfa class, often used for urinary tract infections, middle ear infections, bronchitis, shigella intestinal infection, and Pneumocystis pneumonia. TMS is usually well-tolerated. Occasional side effects include nausea and decreased appetite. Septra is not recommended for infants less than two months of age. Do not take this medication if you have experienced severe side effects or allergy to sulfa medicine. You should stop this medicine at once and contact your physician if you develop any rash, joint pain, shortness of breath, bruising, or jaundice ( yellow color in the skin), or if you develop any other new or unusual symptoms. FOLLOW-UP CARE: If you have been referred to a physician for follow-up care, call the physician s office for an appointment as you were instructed or within the next two days. If you experience worsening or a significant change in your symptoms, notify the physician immediately or return to the Emergency Department at any time for re-evaluation. Prescriptions: Sulfamethoxazole/Trimethoprim [Bactrim Ds Tablet] 1 each PO Q12H 10 Days tablet Forms: Elevated Blood Pressure Referrals: CHERYLE DEAN PA-C [Primary Care Provider] - Follow up as needed
[2018-05-25] MEDS ORDERED: KETOROLAC TROMETHAMINE 60 MG/2 ML SDV IM ONE (15:02)
[2018-05-25] MEDS ORDERED: OXYCODONE HCL IR 5 MG TABLET PO ONE (15:03)
[2018-05-25] MEDS ORDERED: SULFAMETHOXAZOLE/TRIMETHOPRIM 800-160 MG TABLET PO ONE (15:09)
--- NOTE | 2018-05-25 15:11 | EKG REPORT ---
SEVERITY:- NORMAL ECG - SINUS RHYTHM : Confirmed by: Ceci Min MD 25-May-2018 15:11:06
--- NOTE | 2018-05-25 15:12 | RADIOLOGY REPORT (SQ) ---
EXAM DESCRIPTION: VENOUS UNILATERAL LOWER COMPLETED DATE/TIME: 05/25/2018 3:04 pm REASON FOR STUDY: Right thigh DVT COMPARISON: None. TECHNIQUE: Dynamic and static harvey scale and color images acquired of the right leg venous system. S elected spectral images acquired with additional compression and augmentation maneuvers. The contrala teral common femoral vein and saphenofemoral junction were also imaged. Images stored on PACS. LIMITATIONS: None. FINDINGS: COMMON FEMORAL: Normal phasicity, compression and augmentation. No visualized echogenic ma terial on harvey scale. No defects on color images. FEMORAL: Normal compression and augmentation. No visualized echogenic material on harvey scale. No defe cts on color images. POPLITEAL: Normal compression, augmentation. No visualized echogenic material on harvey scale. No defec ts on color images. CALF VESSELS: Normal compression, augmentation. No visualized echogenic material on harvey scale. No de fects on color images. GSV and SSV: Normal compression, augmentation. No visualized echogenic material on harvey scale. No def ects on color images. ANY DEEP VENOUS INSUFFICIENCY: Not evaluated. ANY EVIDENCE OF POPLITEAL CYST: No. OTHER: No other significant finding. CONTRALATERAL COMMON FEMORAL VEIN AND SAPHENOFEMORAL JUNCTION: Normal phasicity, compression and augmentation. No visualized echogenic material on harvey scale. No de fects on color images. IMPRESSION: NO EVIDENCE DVT OR SVT IN THE RIGHT LEG. TECHNICAL DOCUMENTATION: JOB ID: [id number] [employer]- All Rights Reserved Reading location - IP/workstation name: [email or web address]-[email or web address]
== END 2018-05-25 15:32 | disposition home or self-care (01) ==
LOC: ER 12:10
DX: S20.212A Contusion of left front wall of thorax, initial encounter (principal); R07.89 Other chest pain; W19.XXXA Unspecified fall, initial encounter; L03.115 Cellulitis of right lower limb; E11.9 Type 2 diabetes mellitus without complications; I10 Essential (primary) hypertension; I25.10 Atherosclerotic heart disease of native coronary artery without angina pectoris; Z79.899 Other long term (current) drug therapy; Z88.0 Allergy status to penicillin; Z95.5 Presence of coronary angioplasty implant and graft; Z98.890 Other specified postprocedural states; Z86.14 Personal history of Methicillin resistant Staphylococcus aureus infection; Z87.891 Personal history of nicotine dependence
CPT/HCPCS: 93005; 99284; 96372; 36415; 87040; 85025; 80053; 93971; 71046; 93010; J1885; A9270 ×2

== ENCOUNTER 2018-07-18 13:32 | Emergency (ER) | payer MEDICARE, MEDICAID ==
--- NOTE | 2018-07-18 15:04 | ER Document Report ---
ED General - General Chief Complaint: Chest Pain Stated Complaint: CHEST PAIN, BACK PAIN Time Seen by Provider: 07/18/18 14:58 Mode of Arrival: Ambulatory Information source: Patient Notes: Chief complaint: Cough, refill of Percocet History of complain:( obtained from----patient) 47 years old male with chronic pain syndrome under the care of pain clinic, takes 20 mg of oxycodone 4 times a day as well as Percocet 10 mg for breakthrough pain for low back pain. Claims that he only partially filled his prescription, went back to fill the rest of it he could not therefore present to the ED. Also having cough with yellow harvey sputum. Has been smoking. Denies any difficulty in breathing. No fever chills. Onset: As above Duration: Gradual Severity: Mild to moderate Quality: Cough Context: As above Exacerbating factor and relieving factors: As above REVIEW OF SYSTEMS: CONSTITUTIONAL : Denies fever, chills, or sweats. Denies recent illness. EENT: Denies eye, ear, throat, or mouth pain or symptoms. Denies nasal or sinus congestion or discharge. Denies throat, tongue, or mouth swelling or difficulty swallowing. CARDIOVASCULAR: Denies chest pain. Denies palpitations or racing or irregular heart beat. Denies ankle edema. RESPIRATORY: Denies cough, cold, or chest congestion. Denies shortness of breath, difficulty breathing, or wheezing. GASTROINTESTINAL: Denies distention. Denies nausea, vomiting, or diarrhea. Denies blood in vomitus, stools, or per rectum. Denies black, tarry stools. Denies constipation. GENITOURINARY: Denies difficulty urinating, painful urination, burning, frequency, blood in urine, or discharge. FEMALE GENITOURINARY: Denies vaginal bleeding, heavy or abnormal periods, irregular periods. Denies vaginal discharge or odor. MUSCULOSKELETAL: Denies back or neck pain or stiffness. Denies joint pain or swelling. SKIN: Denies rash, lesions or sores. HEMATOLOGIC : Denies easy bruising or bleeding. LYMPHATIC: Denies swollen, enlarged glands. NEUROLOGICAL: Denies confusion or altered mental status. Denies passing out or loss of consciousness. Denies dizziness or lightheadedness. Denies headache. Denies weakness or paralysis or loss of use of either side. Denies problems with gait or speech. Denies sensory loss, numbness, or tingling. Denies seizures. PSYCHIATRIC: Denies anxiety or stress. Denies depression, suicidal ideation, or homicidal ideation. ALL OTHER SYSTEMS REVIEWED AND NEGATIVE. PHYSICAL EXAMINATION: GENERAL: Well-appearing, well-nourished and in no acute distress. Unhygienic HEAD: Atraumatic, normocephalic. EYES: Pupils equal round and reactive to light, extraocular movements intact, conjunctiva are normal. ENT: Nares patent, oropharynx clear without exudates. Moist mucous membranes. NECK: Normal range of motion, supple without lymphadenopathy LUNGS: Breath sounds clear to auscultation bilaterally and equal. No wheezes rales or rhonchi. HEART: Regular rate and rhythm without murmurs ABDOMEN: Soft, nontender, nondistended abdomen. No guarding, no rebound. No masses appreciated. Examination of genitals-deferred Musculoskeletal: Normal range of motion, no pitting or edema. No cyanosis. NEUROLOGICAL: Cranial nerves grossly intact. Normal speech, normal gait. Normal sensory, motor exams PSYCH: Normal mood, normal affect. SKIN: Warm, Dry, normal turgor, no rashes or lesions noted. Dictation was performed using [employer] voice recognition software TRAVEL OUTSIDE OF THE [place] IN LAST 30 DAYS: No - HPI Notes: Dictated - Related Data Allergies/Adverse Reactions: Penicillins Allergy (Verified 07/18/18 13:37) Past Medical History - Social History Smoking Status: Current Some Day Smoker Chew tobacco use (# tins/day): No Frequency of alcohol use: None Drug Abuse: None Lives with: Family Family History: Reviewed & Not Pertinent, CAD, Hypertension Patient has suicidal ideation: No Patient has homicidal ideation: No - Past Medical History Cardiac Medical History: Reports: Hx Coronary Artery Disease, Hx Heart Attack, Hx Hypercholesterolemia, Hx Hypertension Endocrine Medical History: Reports: Hx Diabetes Mellitus Type 2, Hx Hypothyroidism Renal/ Medical History: Denies: Hx Peritoneal Dialysis Musculoskeletal Medical History: Reports Hx Musculoskeletal Deformity, Reports Hx Musculoskeletal Trauma Skin Medical History: Reports Hx MRSA Traumatic Medical History: Reports: Hx Fractures Past Surgical History: Reports: Hx Coronary Stent, Hx Oral Surgery - May , Hx Thyroid Surgery - Immunizations Immunizations up to date: Yes Hx Diphtheria, Pertussis, Tetanus Vaccination: Yes Review of Systems - Review of Systems Notes: Dictated Physical Exam - Vital signs Vitals: BP 112/87 H 07/18/18 14:03 - Notes Notes: Dictated Course - Vital Signs Vital signs: Temp Pulse Resp BP Pulse Ox 98.1 F 76 16 112/87 H 98 07/18/18 14:05 07/18/18 14:05 07/18/18 14:05 07/18/18 14:05 07/18/18 14:05 - Diagnostic Test Radiology reviewed: Reports reviewed - Chest x-ray reported by radiologist as unremarkable Discharge - Discharge Clinical Impression: Chronic pain syndrome, Bronchitis Condition: Fair Disposition: HOME, SELF-CARE Instructions: Chest Wall Pain ([facility]), Chronic Pain Control ([facility]), Bronchitis ( [facility]) Prescriptions: Azithromycin [Zithromax 250 mg Tablet] 250 mg PO ASDIR PRN #6 tablet PRN Reason:
--- NOTE | 2018-07-18 15:44 | RADIOLOGY REPORT (SQ) ---
EXAM DESCRIPTION: CHEST 2 VIEWS COMPLETED DATE/TIME: 07/18/2018 3:26 pm REASON FOR STUDY: Cough COMPARISON: 05/25/2018 EXAM PARAMETERS: NUMBER OF VIEWS: two views TECHNIQUE: Digital Frontal and Lateral radiographic views of the chest acquired. RADIATION DOSE: NA LIMITATIONS: none FINDINGS: LUNGS AND PLEURA: No opacities, masses or pneumothorax. No pleural effusion. MEDIASTINUM AND HILAR STRUCTURES: No masses or contour abnormalities. HEART AND VASCULAR STRUCTURES: Heart normal size. No evidence for failure. BONES: No acute findings. HARDWARE: Sternal wires. OTHER: No other significant finding. IMPRESSION: NO ACUTE RADIOGRAPHIC FINDING IN THE CHEST. TECHNICAL DOCUMENTATION: JOB ID: [id number] [employer]- All Rights Reserved Reading location - IP/workstation name: [email or web address]
[2018-07-18] MEDS ORDERED: HYDROCODONE/ACETAMINOPHEN 5-325 MG (6 TAB/ER DISP) PO PRN (17:03)
[2018-07-18 17:21] VITALS: BP 141/93
--- NOTE | 2018-07-19 15:30 | EKG REPORT ---
SEVERITY:- BORDERLINE ECG - SINUS RHYTHM BORDERLINE T ABNORMALITIES, ANT-LAT LEADS : Confirmed by: Ceci Min MD 19-Jul-2018 15:29:32
== END 2018-07-18 17:34 | disposition home or self-care (01) ==
LOC: ER 13:32
DX: J40 Bronchitis, not specified as acute or chronic (principal); G89.4 Chronic pain syndrome
CPT/HCPCS: 93005; 99285; 71046; 93010; A9270

== ENCOUNTER 2018-07-22 00:17 | Emergency (ER) | payer MEDICARE, MEDICAID ==
[2018-07-22 00:58] VITALS: BP 153/94
[2018-07-22] MEDS ORDERED: LIDOCAINE 2% VISCOUS SOLN 20 ML UDCUP ONE (02:55)
--- NOTE | 2018-07-22 03:08 | ER Document Report ---
ED General - General Chief Complaint: Foreign Body in Ear Stated Complaint: POSSIBLE INSECT IN EAR Time Seen by Provider: 07/22/18 03:06 Notes: Patient is a 47-year-old male who presents with a Pol[place] lodged in his left ear. The patient reports that he felt a call into his ear approximately 1 hour prior to arrival, but he pushed down on it and believes he has killed but cannot get out of the ear canal. He denies any additional symptoms or concerns. No history of the same in the past. He does describe it as a throbbing, aching, constant pain to the left ear. Nothing improves or worsens his symptoms. TRAVEL OUTSIDE OF THE [place] IN LAST 30 DAYS: No - Related Data Allergies/Adverse Reactions: Penicillins Allergy (Verified 07/18/18 13:37) Past Medical History - General Information source: Patient - Social History Smoking Status: Current Every Day Smoker Frequency of alcohol use: None Drug Abuse: None Family History: Reviewed & Not Pertinent, CAD, Hypertension - Past Medical History Cardiac Medical History: Reports: Hx Coronary Artery Disease, Hx Heart Attack, Hx Hypercholesterolemia, Hx Hypertension Endocrine Medical History: Reports: Hx Diabetes Mellitus Type 2, Hx Hypothyroidism Renal/ Medical History: Denies: Hx Peritoneal Dialysis Musculoskeletal Medical History: Reports Hx Musculoskeletal Deformity, Reports Hx Musculoskeletal Trauma Skin Medical History: Reports Hx MRSA Traumatic Medical History: Reports: Hx Fractures Past Surgical History: Reports: Hx Coronary Stent, Hx Oral Surgery - May , Hx Thyroid Surgery - Immunizations Immunizations up to date: Yes Hx Diphtheria, Pertussis, Tetanus Vaccination: Yes Review of Systems - Review of Systems Notes: Constitutional: Negative for fever. Cardiovascular: Negative for chest pain. Respiratory: Negative for shortness of breath. Gastrointestinal: Negative for vomiting Musculoskeletal: Negative for back pain. Skin: Negative for rash. Neurological: Negative for weakness or numbness. 10 point ROS negative except as marked above and in HPI. Physical Exam - Vital signs Vitals: Temp Pulse Resp BP Pulse Ox 97.9 F 70 18 153/94 H 100 07/22/18 00:51 07/22/18 00:51 07/22/18 00:51 07/22/18 00:51 07/22/18 00:51 Notes: PHYSICAL EXAMINATION: GENERAL: Well-appearing, well-nourished and in no acute distress. HEAD: Atraumatic, normocephalic. EYES: sclera anicteric, conjunctiva are normal. ENT: Moist mucous membranes. There is a oconnell lodged directly abutting the tympanic membrane on the left. NECK: Normal range of motion LUNGS: Normal work of breathing HEART: 2+ radial pulses bilaterally EXTREMITIES: no pitting or edema. No cyanosis. NEUROLOGICAL: No focal neurological deficits. Moves all extremities spontaneously and on command. PSYCH: Normal mood, normal affect. SKIN: Warm, Dry, normal turgor, no rashes or lesions noted. Course - Re-evaluation Re-evalutation: 07/22/18 03:06 Patient presents with a Oconnell in his left external ear canal. It is at time of examination. This is lidocaine was instilled with relief of the patient 's discomfort. I was unable to retrieve it as it is lodged horizontally in the ear canal. The patient has been instructed to irrigate the ear canal twice daily with a [id number] mixture of water and hydrogen peroxide. At this time will discharge with return precautions and follow-up recommendations. Verbal discharge instructions given a the bedside and opportunity for questions given. Medication warnings reviewed. Patient is in agreement with this plan and has verbalized understanding of return precautions and the need for primary care follow-up in the next 24-72 hours. - Vital Signs Vital signs: Temp Pulse Resp BP Pulse Ox 97.9 F 70 18 153/94 H 100 07/22/18 00:51 07/22/18 00:51 07/22/18 00:51 07/22/18 00:51 07/22/18 00:51 Discharge - Discharge Clinical Impression: Foreign body in left ear Qualifiers: Encounter type: initial encounter Qualified Code(s): T16.2XXA - Foreign body in left ear, initial encounter Condition: Good Disposition: HOME, SELF-CARE Additional Instructions: Twice daily, irrigate her ear with a total of 10 cc of a [id number] solution of hydrogen peroxide and water. This should help break down the oconnell and allowed to exit ear canal in pieces. You may place the viscous lidocaine with which you were sent home in your ear up to 4 times daily as needed for pain. Return for worsening pain, discharge from the ear, or any other symptoms that are worrisome to you.
== END 2018-07-22 03:22 | disposition home or self-care (01) ==
LOC: ER 00:17
DX: T16.2XXA Foreign body in left ear, initial encounter (principal); X58.XXXA Exposure to other specified factors, initial encounter; F17.200 Nicotine dependence, unspecified, uncomplicated; I25.10 Atherosclerotic heart disease of native coronary artery without angina pectoris; E78.00 Pure hypercholesterolemia, unspecified; I10 Essential (primary) hypertension; E11.9 Type 2 diabetes mellitus without complications; E03.9 Hypothyroidism, unspecified; Z88.0 Allergy status to penicillin; I25.2 Old myocardial infarction; Z86.14 Personal history of Methicillin resistant Staphylococcus aureus infection
CPT/HCPCS: 99282; J3490

== ENCOUNTER 2019-07-20 05:48 | Emergency (ER) | payer MEDICARE, MEDICAID ==
[2019-07-20] MEDS ORDERED: LABETALOL HCL INJ 20 MG/4 ML DISP.SYRIN IV ONE (06:33)
[2019-07-20] MEDS ORDERED: NORMAL SALINE 1000 ML 1,000 ML IV ONE (06:33)
--- NOTE | 2019-07-20 06:38 | ER Document Report ---
ED General - General Chief Complaint: High Blood Pressure Stated Complaint: HIGH BLOOD PRESSURE Time Seen by Provider: 07/20/19 06:32 TRAVEL OUTSIDE OF THE [place] IN LAST 30 DAYS: No - HPI Patient complains to provider of: hypertension Notes: 48-year-old male presents with uncontrolled asymptomatic hypertension. Patient had his blood pressure was high yesterday went to go see urgent care but he of the morning was not able to be seen. This is about 130 afternoon. Went home . Patient woke up this morning very early. insisted he get seen for his high blood pressure. Patient does have history of cardiac disease is supposed to be taking antihypertensive agents but due to my monetary concerns. Patient only takes his medications every second or third day as opposed to daily. Patient denies all symptoms. - Related Data Allergies/Adverse Reactions: Penicillins Allergy (Verified 07/18/18 13:37) Past Medical History - Social History Smoking Status: Current Every Day Smoker Chew tobacco use (# tins/day): No Frequency of alcohol use: None Drug Abuse: None Family History: Reviewed & Not Pertinent, CAD, Hypertension Patient has suicidal ideation: No Patient has homicidal ideation: No - Past Medical History Cardiac Medical History: Reports: Hx Coronary Artery Disease, Hx Heart Attack, Hx Hypercholesterolemia, Hx Hypertension Endocrine Medical History: Reports: Hx Diabetes Mellitus Type 2, Hx Hypothyroidism Renal/ Medical History: Denies: Hx Peritoneal Dialysis Musculoskeletal Medical History: Reports Hx Musculoskeletal Deformity, Reports Hx Musculoskeletal Trauma Skin Medical History: Reports Hx MRSA Traumatic Medical History: Reports: Hx Fractures Past Surgical History: Reports: Hx Cardiac Surgery - triple bypass, Hx Coronary Stent, Hx Oral Surgery - May, Hx Thyroid Surgery - Immunizations Immunizations up to date: Yes Hx Diphtheria, Pertussis, Tetanus Vaccination: Yes Review of Systems - Review of Systems Notes: REVIEW OF SYSTEMS: CONSTITUTIONAL: -fevers, -chills EENT: -eye pain, -difficulty swallowing, -nasal congestion CARDIOVASCULAR: -chest pain, -syncope. RESPIRATORY: -cough, -SOB GASTROINTESTINAL: -abdominal pain, -nausea, -vomiting, -diarrhea GENITOURINARY: -dysuria, -hematuria MUSCULOSKELETAL: -back pain, -neck pain SKIN: -rash or skin lesions. HEMATOLOGIC: -easy bruising or bleeding. LYMPHATIC: -swollen, enlarged glands. NEUROLOGICAL: -altered mental status or loss of consciousness, -headache, - neurologic symptoms PSYCHIATRIC: -anxiety, -depression. ALL OTHER SYSTEMS REVIEWED AND NEGATIVE. Physical Exam - Vital signs Vitals: Temp Pulse Resp BP Pulse Ox 97.2 F 146 H 20 148/107 H 96 07/20/19 05:57 07/20/19 05:57 07/20/19 05:57 07/20/19 05:57 07/20/19 05:57 - Notes Notes: PHYSICAL EXAMINATION: GENERAL: Well-appearing, well-nourished and in no acute distress. HEAD: Atraumatic, normocephalic. EYES: Pupils equal round and reactive to light, extraocular movements intact, sclera anicteric, conjunctiva are normal. ENT: nares patent, oropharynx clear without exudates. Moist mucous membranes. NECK: Normal range of motion, supple without lymphadenopathy LUNGS: Breath sounds clear to auscultation bilaterally and equal. No wheezes rales or rhonchi. HEART: Regular rate and rhythm without murmurs ABDOMEN: Soft, nontender, normoactive bowel sounds. No guarding, no rebound. No masses appreciated. EXTREMITIES: Normal range of motion, no pitting or edema. No cyanosis. NEUROLOGICAL: Cranial nerves grossly intact. Normal speech, normal gait. Normal sensory and motor exams. PSYCH: Normal mood, normal affect. SKIN: Warm, Dry, normal turgor, no rashes or lesions noted. Course - Re-evaluation Re-evalutation: 07/20/19 07:37 -year-old male diabetic with history of heart disease and hypertension. Has been noncompliant with his medications for some time. Presents to get checked out for his hypertension. Patient's extensive lab work-up unremarkable. EKG is no ischemic changes given fluid resuscitation anti-hypertensive agents feeling markedly improved. Patient will be discharged home improved after receiving insulin and labetalol. Fluid resuscitation. Follow-up PCP. He is scheduled to see him today. - Vital Signs Vital signs: Temp Pulse Resp BP Pulse Ox 97.2 F 146 H 18 147/102 H 95 07/20/19 05:57 07/20/19 05:57 07/20/19 07:26 07/20/19 07:26 07/20/19 07:26 - Laboratory Result Diagrams: 07/20/19 06:14 07/20/19 06:14 Laboratory results interpreted by me: 07/20/19 06:14 Sodium 135.7 L Glucose 419 H* - EKG Interpretation by Me Additional EKG results interpreted by me: 07/20/19 06:37 Sinus tachycardia, 131 bpm, no ST elevations, normal QRS, normal QTC Discharge - Discharge Clinical Impression: Hypertension Qualifiers: Hypertension type: unspecified Qualified Code(s): I10 - Essential (primary) hypertension Condition: Stable Disposition: HOME, SELF-CARE Instructions: High Blood Pressure, Requiring Treatment ([facility]) Additional Instructions: See your PCP
--- NOTE | 2019-07-20 06:41 | EKG REPORT ---
SEVERITY:- ABNORMAL ECG - LOW ATRIAL RHYTHM NONSPECIFIC INTRAVENTRICULAR CONDUCTION DELAY INFERIOR INFARCT, POSSIBLY ACUTE : Confirmed by: Helder Campbell MD 20-Jul-2019 06:41:13
[2019-07-20 06:54] LABS: ABSOLUTE EOSINOPHILS # (AUTO) 0.1 10^3/uL (0.0-0.6); ABSOLUTE LYMPHOCYTES (AUTO) 1.3 10^3/uL (0.5-4.7); ABSOLUTE MONOCYTES (AUTO) 0.6 10^3/uL (0.1-1.4); ABSOLUTE NEUT (AUTO) 5.5 10^3/uL (1.7-8.2); BASOPHILS % (AUTO) 0.6 % (0-2); EOSINOPHILS % (AUTO) 1.8 % (0-6); HEMATOCRIT 44.5 % (37.9-51.0); HEMOGLOBIN 15.3 g/dL (13.5-17.0); LYMPHOCYTES % (AUTO) 17.7 % (13-45); MEAN CORPUSCULAR HEMOGLOBIN 30.9 pg (27.0-33.4); MEAN CORPUSCULAR HGB CONC 34.3 g/dL (32.0-36.0); MEAN CORPUSCULAR VOLUME 90 fl (80-97); MONOCYTES % (AUTO) 7.6 % (3-13); PLATELET COUNT 314 10^3/uL (150-450); RED BLOOD COUNT 4.95 10^6/uL (4.35-5.55); RED CELL DISTRIBUTION WIDTH 13.1 % (11.5-14.0); SEGMENTED NEUTROPHILS % (AUTO) 72.3 % (42-78); TOTAL CELLS COUNTED % (AUTO) 100 %; WHITE BLOOD COUNT 7.6 10^3/uL (4.0-10.5)
[2019-07-20 07:08] LABS: ANION GAP 10 (5-19); BLOOD UREA NITROGEN 10 mg/dL (7-20); CALCIUM 10.2 mg/dL (8.4-10.2); CARBON DIOXIDE 26 mmol/L (22-30); CHLORIDE 100 mmol/L (98-107); POTASSIUM 4.1 mmol/L (3.6-5.0)
[2019-07-20 07:20] LABS: NT PRO BNP 89 pg/mL (5-900)
[2019-07-20 07:22] LABS: GLUCOSE 419 mg/dL (75-110)
[2019-07-20 07:23] LABS: TROPONIN I < 0.012 ng/mL
[2019-07-20] MEDS ORDERED: INSULIN REG, HUMAN 100 UNIT/ML 3 ML VIAL (PYX) IV ONE (07:34)
[2019-07-20 07:53] VITALS: BP 157/104
== END 2019-07-20 07:54 | disposition home or self-care (01) ==
LOC: ER 05:48
DX: I10 Essential (primary) hypertension (principal); T46.5X6A Underdosing of other antihypertensive drugs, initial encounter; Z91.120 Patient's intentional underdosing of medication regimen due to financial hardship; Z91.14 Patient's other noncompliance with medication regimen; R00.0 Tachycardia, unspecified; I25.10 Atherosclerotic heart disease of native coronary artery without angina pectoris; E11.9 Type 2 diabetes mellitus without complications; F17.200 Nicotine dependence, unspecified, uncomplicated; Z88.0 Allergy status to penicillin; Z82.49 Family history of ischemic heart disease and other diseases of the circulatory system; Z95.1 Presence of aortocoronary bypass graft; Z95.5 Presence of coronary angioplasty implant and graft
CPT/HCPCS: 93005; 36415; 85025; 80048; 84484; 83880; 93010; J3490; A9270; J7030; J1815